=== PATIENT | male | born 1965 | race Caucasian/White ===

== ENCOUNTER 2021-11-22 10:39 | Emergency (ER) | payer OTHER, SELFPAY ==
[2021-11-22 10:52] LABS: Basophils Percent Auto 0.3 % (0.2-1.2); Eosinophils Absolute Auto 0.4 K/mm3 (0-0.3); Eosinophils Percent Auto 2.7 % (0-4.4); Hematocrit 37.2 % (42.0-52.0); Hemoglobin 12.2 g/dL (14.0-18.0); Immature Granulocyte Percent A 0.7 % (0-0.5); Lymphocytes Absolute Auto 1.47 K/mm3 (0.9-3.2); Lymphocytes Percent Auto 10.4 % (18.3-44.2); Mean Corpuscular HGB Conc 32.8 g/dl (32-36); Mean Corpuscular Hemoglobin 28.4 pg (26-34); Mean Corpuscular Volume 86.5 fl (80-100); Monocytes Absolute Auto 0.8 K/mm3 (0.1-0.6); Monocytes Percent Auto 5.5 % (2.6-8.5); Neutrophils Absolute Auto 11.4 K/mm3 (1.3-6.7); Neutrophils Percent Auto 80.4 % (45.5-73.1); Platelet Count Result 411 k/mm3 (150-375); Red Cell Distribution Width 14.1 % (11.5-14.5); White Blood Count 14.2 K/mm3 (4.5-10.0)
[2021-11-22 10:59] VITALS: BP 122/78; PULSE 107; RESP 14; TEMP 36.5; O2SAT 100
[2021-11-22 11:03] LABS: Alanine Aminotransferase 26 U/L (6-50); Albumin Level 3.8 g/dL (3.5-5.1); Alkaline Phosphatase 57 U/L (38-126); Anion Gap 10 mmol/L (8-16); Aspartate Amino Transferase 26 U/L (17-59); Bilirubin,Total 0.4 mg/dL (0.2-1.3); Blood Urea Nitrogen 18 mg/dL (9-20); Calcium 8.2 mg/dL (8.4-10.2); Carbon Dioxide 18 mmol/L (22-30); Chloride 108 mmol/L (98-107); Estimated Glomerular Filt Rate 49; Glucose 190 mg/dL (65-110); Potassium 4.8 mmol/L (3.4-5.0); Sodium 136 mmol/L (137-145)
[2021-11-22 11:07] LABS: Appearance Urine Clear (Clear); Bilirubin Urine Negative (Negative); Blood Urine Trace-lysed (Negative); Color Urine Yellow (Yellow); Glucose Urine UA Negative (Negative); Ketones Urine Negative (Negative); Leukocyte Esterase Ur Negative LEU/UL (Negative); Nitrate Urine Negative (Negative); Protein Urine Trace mg/dL (Negative); Specific Grav Ur 1.015 (1.001-1.035); Urobilinogen Urine 0.2 mg/dL (<2.0); pH Urine 5.5 (5.0-9.0)
[2021-11-22 11:11] LABS: RBC Urine 0-2 /hpf (0-2); Squamous Epithelial Cell Urine Rare /hpf (Few); WBC Urine 0-3 /hpf
[2021-11-22 11:14] LABS: Add Urine Microscopic? YES
[2021-11-22 11:46] VITALS: BP 132/93; PULSE 97; RESP 17; O2SAT 98
[2021-11-22] MEDS: SODIUM CHLORIDE 0.9% IV 1,000 ML 999 ML IV CONT ×2 (12:22→14:51)
--- NOTE | 2021-11-22 13:07 | ED.GENADULT ---
HPI - General Adult General Chief complaint: Recheck/Abnormal Lab/Rx Stated complaint: Kidney failure? sent by pcp Time Seen by Provider: 11/22/21 12:07 History of Present Illness HPI narrative: 55-year-old male presenting the emergency department for evaluation of elevated creatinine. Patient states he had approximately 3days diarrhea and felt that he was very dehydrated. Patient states during that time he was having leg cramping. Patient did have resolution of the diarrhea morning. Patient did have follow-up with his primary care physician on Wednesday and was found to have a creatinine of 2.7. Patient was instructed to present to the emergency department for his acute kidney injury. Patient states he did drink a a lot of beer and water last night. Patient's creatinine today is 1.5. Patient does have a recent diagnosis of pericarditis and does take colchicine and indomethacin. Patient has history of diabetes but states his blood sugars are better controlled. Patient denies any complaints at this time. Related Data Home Medications Medication Instructions Recorded Confirmed indomethacin 75 mg 75 mg PO DAILY 11/06/21 capsule,extended release Allergies Allergy/AdvReac Type Severity Reaction Status Date / Time No Known Allergies Allergy Verified 11/22/21 11:43 Review of Systems Review of Systems: CONSTITUTIONAL: Denies fever, chills, or sweats. EYES: Denies visual changes, redness, or discharge. ENT: Denies rhinorrhea, congestion, sore throat, or otalgia. CARDIOVASCULAR: Denies chest pain, palpitations, or edema. RESPIRATORY: Denies cough or dyspnea. GASTROINTESTINAL: Denies abdominal pain, nausea, vomiting, or diarrhea. GENITOURINARY: Denies dysuria or hematuria. SKIN: Denies rash or itching. MUSCULOSKELETAL: Denies back pain, joint pain, or myalgia. NEUROLOGIC: Denies headache, numbness, or weakness. 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, uncontrolled Hyperlipidemia Hypertension Insomnia Polyneuropathy Psoriasis Tachycardia Type 2 diabetes mellitus Surgical History Surgical History H/O foot surgery Right: 08/2018 Hx laparoscopic cholecystectomy Family History Family History Mother Diabetes mellitus Father Family history of lung cancer Social History Social History (Reviewed 11/06/21 @ 08:44 by Janay Cao [facility]) Social History: caffeine- Diet soda Smoking status: Never smoker Smoking end date: 06/21/06 Alcohol intake: former Exam Narrative: APPEARANCE: Well appearing, no pain, no distress, well-nourished. HEAD: normocephalic, atraumatic. EYES: PERRLA/EOMI, conjunctivae clear. NECK: Supple. No adenopathy, no masses. RESPIRATORY: Airway patent, respirations nonlabored. Clear to auscultation bilaterally, no rales, rhonchi, wheezing. CARDIOVASCULAR: Regular rate and rhythm without murmurs rubs or gallops. ABDOMINAL: Soft, nontender, nondistended, normal bowel sounds MUSCULOSKELETAL: Moves all extremities. Strength/ROM intact. NEURO: Alert. Cranial nerves II through XII intact. Grossly intact SKIN: Warm, dry. Normal Color Course Course Emergency Course: Patient's creatinine was significantly improved compared to his labs yesterday. Patient states he is tolerating p.o. and has no persistent nausea or vomiting. Patient states he is urinating clear. Patient was treated with 2 L of normal saline. Patient states he does have follow-up scheduled with his primary care physician. Patient was educated on reasons to return to the emergency room. All question concerns were addressed. Patient was well-appearing at time of discharge. Vital Signs Vital signs: Vital Signs Temperature 97.7 F 11/22/21 10:59 Pulse Ra
[2021-11-22 14:05] VITALS: BP 136/84; PULSE 82; RESP 16; O2SAT 98
[2021-11-22 15:10] VITALS: BP 136/92; PULSE 79; RESP 17; O2SAT 98
== END 2021-11-22 15:10 | disposition home or self-care (01) ==
PROVIDERS: Emergency Provider Emergency Medicine; PCP Internal Medicine
DX: N17.9 Acute kidney failure, unspecified (principal); E78.5 Hyperlipidemia, unspecified; I10 Essential (primary) hypertension; E11.42 Type 2 diabetes mellitus with diabetic polyneuropathy; E11.49 Type 2 diabetes mellitus with other diabetic neurological complication; Z79.84 Long term (current) use of oral hypoglycemic drugs
CPT/HCPCS: 36415; 80053; 81001; 85025; 96360; 96361; 99283; J7030

== ENCOUNTER 2021-11-29 09:50 | Emergency (ER) | payer OTHER, SELFPAY ==
--- NOTE | ~2021-11-29 | CT_ITS ---
EXAMINATION: CTA chest PE protocol DATE: 11/29/2021 11:58 CDT INDICATION: Chest pain, shortness of breath and tachycardia. Elevated d-dimer. TECHNIQUE: Computed tomographic angiography (CTA) of the chest was performed with 100 mL Omnipaque-35 0 intravenous contrast. The dose-length product was 899.46 mGy-cm. Maximum intensity projection 3D-re constructions of the aorta and other arteries were constructed by the technologist on a separate work station. Automated exposure control and iterative reconstruction technique were employed. COMPARISON: Chest x-ray dated 11/29/2021. FINDINGS: Study is technically limited for evaluation of the peripheral pulmonary arteries due to con trast bolus timing and motion. No large central pulmonary embolism. No thoracic lymphadenopathy. Ther e is atherosclerosis of the aorta and coronary arteries. Heart size normal. Small pericardial effusio n. There is focal fatty infiltration with nodular soft tissue just lateral to the hepatic flexure the colon, images 255-264. This finding is nonspecific. There are nonenlarged mediastinal lymph nodes, l ikely reactive. There is left lower lobe airspace consolidation which may represent atelectasis and/o r pneumonia. Motion artifact limits evaluation for small pulmonary nodules. No endobronchial lesions. No acute osseous abnormality. IMPRESSION: 1. No large central pulmonary embolism. Study limited for evaluation of peripheral pulmonary arteries . 2: Left lower lobe airspace consolidation which may represent atelectasis and/or pneumonia. 3: Small left pleural effusion. 4: Small pericardial effusion. 5: Focal fatty infiltration with nodular soft tissue just lateral to the hepatic flexure the colon, i mages 255-264. This may represent sequela of adjacent diverticulitis although malignancy (i.e. metast atic disease is not excluded. Reviewed, dictated and finalized at location A. IMPRESSION: 1. No large central pulmonary embolism. Study limited for evaluation of periphe ral pulmonary arteries. 2: Left lower lobe airspace consolidation which may represent atelectasis and/o r pneumonia. 3: Small left pleural effusion. 4: Small pericardial effusion. 5: Focal fatty infiltration with nodular soft tissue just lateral to the hepati c flexure the colon, images 255-264. This may represent sequela of adjacent div erticulitis although malignancy (i.e. metastatic disease is not excluded.
--- NOTE | ~2021-11-29 | XR_ITS ---
XR chest 2V 11/29/2021 10:26 Indication: Chest pain. Diabetes. Procedure: 2 view chest Comparison: No prior studies for comparison. Findings: Small left pleural effusion with left basilar atelectasis. Heart size normal. Right lung cl ear. No pneumothorax. No edema. Impression: 1: Left basilar atelectasis. 2: Small left pleural effusion. Reviewed, dictated and finalized at location A. Impression: 1: Left basilar atelectasis. 2: Small left pleural effusion.
[2021-11-29 09:51] VITALS: BP 140/84; PULSE 84; RESP 18; TEMP 36.1; O2SAT 100
[2021-11-29 10:04] VITALS: PULSE 109
--- NOTE | 2021-11-29 10:05 | ECG_ITS ---
Measurements Intervals [place] Rate: 107 P: 28 CT: 150 QRS: 28 QRSD: 100 T: 255 QT: 294 QTc: 393 Interpretive Statements SINUS TACHYCARDIA INCOMPLETE RIGHT BUNDLE BRANCH BLOCK [90+ ms QRS DURATION, TERMINAL R IN V1/V2, 40+ ms S IN I/aVL/V4/V5/V6] ST DEVIATION AND MODERATE T-WAVE ABNORMALITY, CONSIDER ANTEROLATERAL ISCHEMIA [-0.1+ mV T-WAVE IN V3-V6] ST DEVIATION AND MODERATE T-WAVE ABNORMALITY, CONSIDER INFERIOR ISCHEMIA [-0.1+ mV T- WAVE IN II/aVF] ABNORMAL ECG NO PREVIOUS ECG AVAILABLE FOR COMPARISON Electronically Signed On 11-29-2021 13:47:18 CDT by Rex Mauricio M.D.
[2021-11-29 10:15] LABS: Basophils Absolute Auto 0.1 K/mm3 (0.0-0.1); Basophils Percent Auto 0.7 % (0.2-1.2); Eosinophils Absolute Auto 1.1 K/mm3 (0-0.3); Eosinophils Percent Auto 9.9 % (0-4.4); Hematocrit 38.6 % (42.0-52.0); Hemoglobin 12.5 g/dL (14.0-18.0); Immature Granulocyte Absolute 0.06 K/mm3 (0.00-0.031); Immature Granulocyte Percent A 0.5 % (0-0.5); Lymphocytes Absolute Auto 2.16 K/mm3 (0.9-3.2); Lymphocytes Percent Auto 19.5 % (18.3-44.2); Mean Corpuscular HGB Conc 32.4 g/dl (32-36); Mean Corpuscular Hemoglobin 28.2 pg (26-34); Mean Corpuscular Volume 87.1 fl (80-100); Mean Platelet Volume 9.6 fl (7.4-10.4); Monocytes Absolute Auto 0.9 K/mm3 (0.1-0.6); Monocytes Percent Auto 8.1 % (2.6-8.5); Neutrophils Absolute Auto 6.8 K/mm3 (1.3-6.7); Neutrophils Percent Auto 61.3 % (45.5-73.1); Platelet Count Result 518 k/mm3 (150-375); Red Blood Count 4.43 M/mm3 (4.6-6.20); Red Cell Distribution Width 14.9 % (11.5-14.5); White Blood Count 11.1 K/mm3 (4.5-10.0)
--- NOTE | 2021-11-29 10:17 | ED.CHESTPAIN ---
HPI - Chest Pain General Chief Complaint: Chest Pain <SAAD Edwards Last Filed: 11/29/21 15:45> Stated Complaint: back pain, told he had kidney failure last week <SAAD Edwards Last Filed: 11/29/21 15:45> Time Seen by Provider: 11/29/21 09:56 <SAAD Edwards Last Filed: 11/29/21 15:45> History of Present Illness HPI narrative: Patient is a 55-year-old male with a history of pericarditis, diabetes, s/p RLE amputation, HTN, HLD here for evaluation of chest and left lower back pain onset yesterday, worse today. Patient states his pain begins in his left upper flank region and radiates around to his chest. States the pain is worse with deep breaths, coughing, movement of his thorax, and also worse with touching his chest. States he has a similar pain in his chest when he was diagnosed with pericarditis last month at outside hospital, and he has been taking colchicine for this. Recently stopped his indomethacin. States the pain is making him short of breath. Reports some sinus congestion recently, but no cough. Denies fevers, chills, abdominal pain, nausea, vomiting, dysuria, hematuria. No history of IV drug use. Denies recent overuse of chest muscles or back muscles. <SAAD Edwards Last Filed: 11/29/21 15:45> Related Data Home Medications: Home Medications Medication Instructions Recorded Confirmed indomethacin 75 mg 75 mg PO DAILY 11/06/21 11/25/21 capsule,extended release <SAAD Edwards Last Filed: 11/29/21 15:45> Allergies/Adverse Reactions: Allergies Allergy/AdvReac Type Severity Reaction Status Date / Time No Known Allergies Allergy Verified 11/29/21 10:09 <SAAD Edwards Last Filed: 11/29/21 15:45> Review of Systems Review of Systems: Gen: Denies fevers or chills Eyes: Denies eye pain or visual change ENT: Denies congestion Respiratory: Denies shortness of breath or cough CV: Reports chest pain GI: Denies abdominal pain nausea, emesis or diarrhea denies burning, urgency, frequency or hematuria Musculoskeletal: Reports back pain. 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, uncontrolled Hyperlipidemia Hypertension Insomnia Polyneuropathy Psoriasis Tachycardia Type 2 diabetes mellitus <Ratna Louise PA-C - Last Filed: 11/29/21 15:45> Surgical History Surgical History: Surgical History H/O foot surgery Right: 08/2018 Hx laparoscopic cholecystectomy <Ratna Louise PA-C - Last Filed: 11/29/21 15:45> Family History Family History: Family History Mother Diabetes mellitus Father Family history of lung cancer <Ratna Louise PA-C - Last Filed: 11/29/21 15:45> Social History Social History: Social History Social History: caffeine- Diet soda Smoking status: Never smoker Smoking end date: 06/21/06 Alcohol intake: former <Ratna Louise PA-C - Last Filed: 11/29/21 15:45> Exam Narrative: APPEARANCE: Uncomfortable appearing Head normocephalic and atraumatic. EYES: PERRLA/EOMI, conjunctivae clear NOSE: No nasal drainage EARS: External ear normal in appearance THROAT: Oropharynx is clear. Mucous membranes are moist. NECK: Supple. No adenopathy, no masses. RESPIRATORY: Airway patent, respirations nonlabored. Clear to auscultation bilaterally, no rales, rhonchi, wheezing. [facility]
[2021-11-29 10:24] LABS: Alanine Aminotransferase 15 U/L (6-50); Alkaline Phosphatase 62 U/L (38-126); Anion Gap 10 mmol/L (8-16); Aspartate Amino Transferase 20 U/L (17-59); Bilirubin,Total 0.5 mg/dL (0.2-1.3); Blood Urea Nitrogen 7 mg/dL (9-20); Calcium 8.5 mg/dL (8.4-10.2); Carbon Dioxide 23 mmol/L (22-30); Chloride 105 mmol/L (98-107); Estimated CRCL calculation 120 ml/min; Estimated Glomerular Filt Rate > 60; Glucose 154 mg/dL (65-110); Lipase 329 U/L (23-300); Potassium 4.6 mmol/L (3.4-5.0); Sodium 138 mmol/L (137-145)
[2021-11-29 10:26] LABS: Prothrombin Time 13.2 Seconds (11.1-14.7)
[2021-11-29 10:33] LABS: Partial Thromboplastin Time 30.4 SECONDS (22.3-36.8)
[2021-11-29 10:33] LABS: Appearance Urine Clear (Clear); Bilirubin Urine Negative (Negative); Blood Urine Negative (Negative); Color Urine Yellow (Yellow); Glucose Urine UA Negative (Negative); Ketones Urine Negative (Negative); Leukocyte Esterase Ur Negative LEU/UL (Negative); Nitrate Urine Negative (Negative); Protein Urine Negative (Negative); Specific Grav Ur 1.015 (1.001-1.035); Urobilinogen Urine 0.2 mg/dL (<2.0)
[2021-11-29 10:36] LABS: D Dimer 2.62 ug/mL (<0.48); Troponin I < 0.012 ng/mL (0.000-0.034)
[2021-11-29 10:40] LABS: Add Urine Microscopic? NO
[2021-11-29] MEDS: ASPIRIN 81 MG CHEWABLE TABLET 324 MG PO (10:55)
[2021-11-29 12:06] VITALS: BP 124/69; PULSE 97; RESP 21; O2SAT 99
[2021-11-29 12:30] VITALS: PULSE 103; RESP 18; O2SAT 96
[2021-11-29 13:31] VITALS: BP 124/71; PULSE 90; RESP 22; O2SAT 97
[2021-11-29 13:43] LABS: Troponin I < 0.012 ng/mL (0.000-0.034)
[2021-11-29] MEDS: INDOMETHACIN 25 MG CAPSULE PO (13:46)
[2021-11-29 14:30] VITALS: BP 142/83; PULSE 93; RESP 16; O2SAT 97
== END 2021-11-29 14:35 | disposition home or self-care (01) ==
PROVIDERS: Physician Assistant; Emergency Provider Emergency Medicine; PCP Internal Medicine
DX: J18.9 Pneumonia, unspecified organism (principal); I31.9 Disease of pericardium, unspecified; E11.49 Type 2 diabetes mellitus with other diabetic neurological complication; I10 Essential (primary) hypertension; E78.5 Hyperlipidemia, unspecified; Z89.611 Acquired absence of right leg above knee; Z79.84 Long term (current) use of oral hypoglycemic drugs; R00.0 Tachycardia, unspecified; I45.10 Unspecified right bundle-branch block; R94.31 Abnormal electrocardiogram [ECG] [EKG]
CPT/HCPCS: 36415; 71046; 71275; 80053; 81003; 83690; 84484; 85025; 85380; 85610; 85730; 93005; 99284; A9270; Q9967

== ENCOUNTER 2021-12-16 12:54 | Outpatient (CLI) | payer OTHER, SELFPAY ==
--- NOTE | ~2021-12-16 | XR_ITS ---
XR chest 2V DATE: 12/16/2021 13:06 INDICATION: Cough. Pneumonia. TECHNIQUE: PA and lateral views COMPARISON: 11/29/[address] pulmonary scan FINDINGS: There is left lower lobe and lingular infiltrate/atelectasis and moderate left pleural effu clement; the left pleural effusion has increased since 11/29/2021. The remaining lung hanna appear clear. No right pleural effusion is evident. Normal heart size. No hilar or mediastinal enlargement is detected. IMPRESSION: Moderate left pleural effusion, increased since 11/29/2021, with persistent left lower lob e and lingular infiltrate and/or atelectasis Reviewed, dictated and finalized at location B. IMPRESSION: Moderate left pleural effusion, increased since 11/29/2021, with per sistent left lower lobe and lingular infiltrate and/or atelectasis
== END 2021-12-16 12:55 | disposition home or self-care (01) ==
LOC: ANHIMG 12:57
PROVIDERS: PCP Internal Medicine; Visit Provider Clinical Nurse Specialist
DX: J18.9 Pneumonia, unspecified organism (principal); J90 Pleural effusion, not elsewhere classified
CPT/HCPCS: 71046

== ENCOUNTER 2021-12-17 12:03 | Emergency (ER) | payer OTHER, SELFPAY ==
[2021-12-17] VITALS (9 sets, daily range): BP systolic 93–149; BP diastolic 63–108; PULSE 68–113; RESP 14–25; TEMP 36.8; O2SAT 96–100
--- NOTE | ~2021-12-17 | US_ITS ---
EXAMINATION: US thoracentesis DATE: 12/17/2021 16:33 INDICATION: Left pleural effusion TECHNIQUE: The procedure and its risks and benefits were discussed with the patient. Potential risks discussed included bleeding, infection, and pneumothorax. The patient understood the risks and agreed to proceed. The skin was prepped and draped in sterile fashion. 1% lidocaine was used for local anes thesia. Under ultrasound guidance, a 5 Fr catheter with trochar was advanced into the left pleural ef fusion. Fluid was aspirated. The catheter was removed, and a dressing was applied. There were no imme diate complications. FINDINGS: Ultrasound images demonstrate a moderate-sized left pleural effusion and the catheter within the flui d. IMPRESSION: 1. Successful ultrasound-guided thoracentesis yielding 1000 mL of dark maroon-colored fluid. Reviewed, dictated and finalized at location A. IMPRESSION: 1. Successful ultrasound-guided thoracentesis yielding 1000 mL of dark maroon- colored fluid.
--- NOTE | ~2021-12-17 | XR_ITS ---
EXAMINATION: [id number] DATE: 12/17/2021 16:21 INDICATION: Status post left thoracentesis TECHNIQUE: frontal and lateral views of the chest were obtained. COMPARISON: Chest radiograph dated 12/16/2021 FINDINGS: Interval decrease in size of a previously moderate-sized, now small left pleural effusion at the left costophrenic angle. Opacities in the left lower lung zone which could represent atelectasis or pneum onia. Right lung remains clear. No pneumothorax or right-sided pleural effusion. Cardiomediastinal si lhouette is normal. IMPRESSION: 1. Decreased now small left pleural effusion postthoracentesis. No pneumothorax. 2. Opacities in the left lower lung zone which could represent atelectasis and/or pneumonia. Reviewed, dictated and finalized at location A. IMPRESSION: 1. Decreased now small left pleural effusion postthoracentesis. No pneumothorax . 2. Opacities in the left lower lung zone which could represent atelectasis and/ or pneumonia.
--- NOTE | ~2021-12-17 | CT_ITS ---
EXAMINATION: CTA chest PE protocol DATE: 12/17/2021 14:40 INDICATION: Dyspnea. Elevated d-dimer. TECHNIQUE: Computed tomography angiography (CTA) of the chest was performed with 100 mL Omnipaque-350 intravenous contrast timed to evaluate the pulmonary arteries. Coronal maximum intensity projection 3D-reconstructions were created by the technologist. Automated exposure control and iterative reconst ruction technique were employed. Exam dose: 822.63 mGy-cm total exam DLP. COMPARISON: 12/16/2021 2 view chest 11/29/2021 CT pulmonary scan FINDINGS: There is diagnostic contrast enhancement of pulmonary. No pulmonary embolism is identified within the limits of this examination with considerable respiratory motion, resulting in suboptimal v isualization of the peripheral pulmonary arteries. No thoracic aortic aneurysm or dissection. Normal heart size. Small pericardial effusion. Moderately large left pleural effusion with compressive atelectasis of the left lower lobe. The remai crista lung hanna are clear. Likely reactive mild left hilar and mediastinal lymph node prominence. No right pleural effusion. Normal morphology of the adrenal glands. Status post cholecystectomy. Included portions of the liver, spleen, pancreas and kidneys are unremar kable. The skeletal structures are unremarkable other than degenerative change of the thoracic and lumbar sp ine. No suspicious osteolytic or osteoblastic lesions. IMPRESSION: No evidence of pulmonary embolism Moderately large left pleural effusion and compressive atelectasis, left lower lobe Reviewed, dictated and finalized at Location A. Reviewed, dictated and finalized at location B.
--- NOTE | 2021-12-17 12:09 | ECG_ITS ---
Measurements Intervals [place] Rate: 111 P: 30 [place]: 163 QRS: 44 QRSD: 107 T: -65 QT: 309 QTc: 420 Interpretive Statements SINUS TACHYCARDIA POSSIBLE LEFT ATRIAL ENLARGEMENT [-0.1mV P WAVE IN V1/V2] INCOMPLETE RIGHT BUNDLE BRANCH BLOCK [90+ ms QRS DURATION, TERMINAL R IN V1/V2, 40+ ms S IN I/aVL/V4/V5/V6] ST DEVIATION AND MODERATE T-WAVE ABNORMALITY, CONSIDER ANTEROLATERAL ISCHEMIA [-0.1+ mV T WAVE IN V3-V6], noted on the patient's prior tracing COMPARED TO ECG 11/29/2021 10:04:39 NO SIGNIFICANT CHANGES Electronically Signed On 12-17-2021 12:51:35 CDT by Nat Alvarado M.D.
[2021-12-17 12:25] LABS: Basophils Absolute Auto 0.1 K/mm3 (0.0-0.1); Basophils Percent Auto 0.9 % (0.2-1.2); Eosinophils Absolute Auto 0.7 K/mm3 (0-0.3); Eosinophils Percent Auto 7.2 % (0-4.4); Hematocrit 38.5 % (42.0-52.0); Hemoglobin 13.1 g/dL (14.0-18.0); Immature Granulocyte Absolute 0.03 K/mm3 (0.00-0.031); Immature Granulocyte Percent A 0.3 % (0-0.5); Lymphocytes Absolute Auto 1.81 K/mm3 (0.9-3.2); Lymphocytes Percent Auto 18.8 % (18.3-44.2); Mean Corpuscular Hemoglobin 28.1 pg (26-34); Mean Corpuscular Volume 82.6 fl (80-100); Mean Platelet Volume 9.7 fl (7.4-10.4); Monocytes Absolute Auto 0.8 K/mm3 (0.1-0.6); Monocytes Percent Auto 8.1 % (2.6-8.5); Neutrophils Absolute Auto 6.2 K/mm3 (1.3-6.7); Neutrophils Percent Auto 64.7 % (45.5-73.1); Platelet Count Result 376 k/mm3 (150-375); Red Blood Count 4.66 M/mm3 (4.6-6.20); Red Cell Distribution Width 14.2 % (11.5-14.5); White Blood Count 9.6 K/mm3 (4.5-10.0)
--- NOTE | 2021-12-17 12:30 | PC.NURSE ---
patient has been having SOB x2 weeks. was told that he had some fluid in his lungs and was started on an oral abx and mucinex. re-check xray yesterday and was told that it is getting worse.
[2021-12-17 12:43] LABS: Alanine Aminotransferase 17 U/L (6-50); Albumin Level 4.1 g/dL (3.5-5.1); Alkaline Phosphatase 65 U/L (38-126); Anion Gap 11 mmol/L (8-16); Aspartate Amino Transferase 30 U/L (17-59); Blood Urea Nitrogen 8 mg/dL (9-20); Calcium 9.1 mg/dL (8.4-10.2); Carbon Dioxide 18 mmol/L (22-30); Chloride 104 mmol/L (98-107); Estimated CRCL calculation 118 ml/min; Estimated Glomerular Filt Rate > 60; Glucose 230 mg/dL (65-110); Potassium 4.6 mmol/L (3.4-5.0); Sodium 133 mmol/L (137-145)
[2021-12-17 12:44] LABS: INR 1.1; Partial Thromboplastin Time 29.9 SECONDS (22.3-36.8); Prothrombin Time 13.6 Seconds (11.1-14.7)
[2021-12-17 12:48] LABS: NT Pro B Type Natriuretic Pept 296 pg/mL (5-100)
[2021-12-17 12:52] LABS: Troponin I < 0.012 ng/mL (0.000-0.034)
[2021-12-17 13:07] LABS: D Dimer 2.72 ug/mL (<0.48)
[2021-12-17 14:16] LABS: SARS-CoV-2 RNA PCR Negative
--- NOTE | 2021-12-17 16:06 | ED.SOB ---
HPI - SOB/Dyspnea General Chief Complaint: Shortness of Breath/Dyspnea Stated Complaint: sob, cough Time Seen by Provider: 12/17/21 12:42 History of Present Illness HPI Narrative: Patient presents with concern for pleural effusion. Was recently seen and treated for pericarditis as well as a pneumonia. Reports overall he is feeling well he follow-up with his primary care doctor had an outpatient chest x-ray there was concern for pleural effusions referred to the ER for further evaluation. Reports overall he is feeling well reports he gets a little bit fatigued with walking around but if it was not for his primary care's doctor's recommendation he probably would continue to try and manage his symptoms at home. Denies any chest pain reports some mild shortness of breath denies any cough or fevers. Related Data Home Medications Medication Instructions Recorded Confirmed indomethacin 75 mg 75 mg PO DAILY 11/06/21 12/08/21 capsule,extended release Allergies Allergy/AdvReac Type Severity Reaction Status Date / Time No Known Allergies Allergy Verified 12/08/21 13:23 Review of Systems Review of Systems: CONSTITUTIONAL: Denies fever, chills, or sweats. EYES: Denies visual changes, redness, or discharge. ENT: Denies rhinorrhea, congestion, sore throat, or otalgia. CARDIOVASCULAR: Denies chest pain, palpitations, or edema. RESPIRATORY: Denies cough or dyspnea. GASTROINTESTINAL: Denies abdominal pain, nausea, vomiting, or diarrhea. GENITOURINARY: Denies dysuria or hematuria. SKIN: Denies rash or itching. MUSCULOSKELETAL: Denies back pain, joint pain, or myalgia. NEUROLOGIC: Denies headache, numbness, dizziness, or weakness. PSYCHIATRIC: Denies anxiety or depression. 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 HEAD: Normocephalic, atraumatic. EYES: PERRLA and EOMI. ENT: Nares clear, no rhinorrhea or epistaxis. Mucous membranes moist. NECK: Supple. No masses. No JVD CHEST: Mild diminished aeration in the left lung field HEART: Regular rate and rhythm. No murmur heard. Normal peripheral pulses. ABDOMEN: Soft, nontender, nondistended, normal active bowel sounds. EXTREMITIES: Normal range of motion. No edema. SKIN: Warm, dry, no rash. NEURO: No focal deficits. Alert and oriented x3. PSYCH: Normal mood and affect. Course Reevaluation(s) Reevaluation #1: Patient reports feeling much improved after his thoracentesis abscess diarrhea was reassuring. Given reassuring work-up and improvement in symptoms patient is appropriate for continued outpatient monitoring with his primary care doctor. X-ray with concern for pneumonia we will add azithromycin. Patient is comfortable outpatient plan. Date: 12/17/21 Time: 17:22 Vital Signs Vital signs: Vital Signs Temperature 36.8 C 12/17/21 12:07 Pulse Rate 113 H 12/17/21 12:07 Respiratory Rate 20 12/17/21 12:07 Blood Pressure 131/108 H 12/17/21 12:07 Pulse Oximetry 100 12/17/21 12:07 Oxygen Delivery Room Air 12/17/21 12:07 Temperature 36
[2021-12-17 16:33] LABS: pH Pleural Fluid 7.376 (7.210-7.500)
[2021-12-17 19:41] LABS: Appearance Pleural Fluid Bloody (Clear); Color Pleural Fluid Red (Colorless); Nucleated Cell Pleural Fluid 1334 /uL (0-1000); Pleural fluid source Pleural fluid
[2021-12-17 19:42] LABS: Lymphocytes Pleural Fluid 55 %; Macrophages Pleural Fluid 3 %; Monocytes Pleural Fluid 16 %; Neutrophils Pleural Fluid 1 % (0-25); RBC Pleural Fluid 54564 /uL (0-0)
[2021-12-17 19:43] LABS: Other Cells Pleural Fluid 25 %
[2021-12-21 14:15] LABS: Glucose Pleural Fluid 166 mg/dL; Total Protein Pleural Fluid 4.9 g/dL
[2021-12-22 12:59] LABS: Albumin Pleural Fluid 3.1 g/dL
== END 2021-12-17 17:55 | disposition home or self-care (01) ==
PROVIDERS: Emergency Provider Emergency Medicine; PCP Internal Medicine
DX: J18.9 Pneumonia, unspecified organism (principal); J90 Pleural effusion, not elsewhere classified; Z20.822 Contact with and (suspected) exposure to COVID-19; E78.5 Hyperlipidemia, unspecified; I10 Essential (primary) hypertension; E11.42 Type 2 diabetes mellitus with diabetic polyneuropathy; Z89.429 Acquired absence of other toe(s), unspecified side; Z89.619 Acquired absence of unspecified leg above knee; Z87.891 Personal history of nicotine dependence; R00.0 Tachycardia, unspecified; I45.10 Unspecified right bundle-branch block; R94.31 Abnormal electrocardiogram [ECG] [EKG]; Z79.84 Long term (current) use of oral hypoglycemic drugs
CPT/HCPCS: 32555; 36415; 71275; 80053; 82042; 82945; 83615; 83880; 83986; 84157; 84311; 84484; 85025; 85380; 85610; 85730; 88104; 88108; 88184; 88305; 89051; 93005; 99284; C9803; Q9967; U0003; U0005

== ENCOUNTER 2021-12-31 09:30 | Outpatient (CLI) | payer OTHER, SELFPAY ==
--- NOTE | ~2021-12-31 | XR_ITS ---
XR chest 2V DATE: 12/31/2021 09:47 INDICATION: Pleural effusion TECHNIQUE: PA and lateral views COMPARISON: 12/17/2021 CT pulmonary scan 12/16/2021 2 view chest FINDINGS: There is mild improvement of left pleural effusion since 12/08/2021 and some persistent left lower lobe atelectasis. No right pleural effusion. The lungs are otherwise clear. Heart size normal. No hilar or mediastinal enlargement. IMPRESSION: Mild improvement of left pleural effusion, persistent left lower lung atelectasis since Reviewed, dictated and finalized at location A. IMPRESSION: Mild improvement of left pleural effusion, persistent left lower bigg ng atelectasis since 12/08/2021
== END 2021-12-31 09:31 | disposition home or self-care (01) ==
LOC: ANHIMG 09:32
PROVIDERS: PCP Internal Medicine; Visit Provider Internal Medicine
DX: J90 Pleural effusion, not elsewhere classified (principal)
CPT/HCPCS: 71046

== ENCOUNTER 2022-01-20 13:16 | Outpatient (CLI) | payer OTHER, SELFPAY ==
--- NOTE | 2022-01-20 13:48 | ECHO_ITS ---
Patient Info Name: Lenard Castaneda Age: 56 years : 1965 Gender: Male Ht: 72 in Wt: 250 lbs BSA: 2.44 m2 HR: 94 bpm BP: 139 / 95 mmHg Technical Quality: Good Exam Date: 01/20/2022 2:13 PM Exam Location: [facility] Patient Status: Outpatient Admit Date: 01/20/2022 Staff Ordering Physician: Yoav Goldsmith DO Blue Print Control Clerk: Fabian Ortiz RDCS, RT Attending Provider: Ratna Salazar NP Referring Physician: Agus GARCIA; Exam Type: CA echo doppler color flow Study Info Indications I31.3 - Pericardial effusion (noninflammatory) Complete two-dimensional, color flow and Doppler transthoracic echocardiogram is performed. Strain analysis performed. Summary 1. Complete two-dimensional, color flow and Doppler transthoracic echocardiogram is performed. 2. Left ventricular chamber dimension is normal. 3. Left ventricular systolic function is normal, estimated at 60-65%. 4. The left ventricular diastolic function is grade I diastolic dysfunction. 5. E/e' 8 is minimally elevated. 6. Global longitudinal strain is normal at -18.1%. 7. Dilated inferior vena cava with >50% collapse upon inspiration consistent with elevated right atrial pressure, 10 mmHg. Left Ventricle E/e' 8 is minimally elevated. Global longitudinal strain is normal at -18.1%. Left ventricular chamber dimension is normal. Left ventricular systolic function is normal, estimated at 60-65%. The left ventricular diastolic function is grade I diastolic dysfunction. Right Ventricle Right ventricular chamber dimension is normal. Right ventricular systolic function is normal. Left Atria Left atrial chamber dimension is normal. Right Atria Right atrial chamber dimension is normal. Aortic Valve The aortic valve is trileaflet. There is no aortic valve stenosis. There is no aortic valve regurgitation. Pulmonic Valve There is no pulmonic regurgitation. Mitral Valve There is no mitral valve stenosis. There is no mitral valve regurgitation. Tricuspid Valve There is no tricuspid valve regurgitation. Pericardium/Pleural There is no pericardial effusion. Inferior Vena Cava Dilated inferior vena cava with >50% collapse upon inspiration consistent with elevated right atrial pressure, 10 mmHg. Aorta The aortic root size at the sinus of Valsalva is normal. Left Ventricular Outflow Tract Name Value Normal LVOT 2D LVOT Diameter 2.0 cm LVOT Doppler LVOT Peak Gradient 4 mmHg LVOT Mean Gradient 2 mmHg LVOT VTI 16 cm LVOT VTI/AV VTI Ratio 0.9 LVOT Stroke Volume 54 ml LVOT CO 5.4 l/min LVOT CI 2.2 l/min/m2 Mitral Valve Name Value Normal MV Doppler MV
== END 2022-01-20 13:17 | disposition home or self-care (01) ==
LOC: ANHCARD 13:19
PROVIDERS: PCP Internal Medicine; Visit Provider Nurse Practitioner
DX: I31.3 Pericardial effusion (noninflammatory) (principal)
CPT/HCPCS: 93306

== ENCOUNTER 2022-01-23 01:40 | Outpatient (CLI) | payer OTHER, SELFPAY ==
[2022-01-15 10:32] VITALS: BMI 33.9
--- NOTE | 2022-01-15 10:34 | PC.NURSE ---
Pre Radiology instructions Report to the RADIOLOGY ENTRANCE, at time 1000 on date 01/23/22. Procedure Time: 1030. One visitor will be allowed to accompany the patient into the hospital. The visitor will be instructed to remain with patient at all times or leave the building. We will allow the visitor to come back to the postoperative area when patient is ready. You and your visitor will be asked a series of questions to screen for COVID 19 for your protection. A mask is required within the hospital. Patients are to have no food or drink 6 hours prior to procedure time Driving will be restricted after the procedure, you must have a person to drive you home. Labs will be drawn in preop area and once reviewed, you will be taken to radiology area for procedure. When the procedure is completed, you will be taken to outpatient where you will be monitored for several hours. You may have one visitor in this area. Other than holding anti-coagulants, patient may take other medication(s) as scheduled. Prior to your appointment date patients are instructed to hold anti-coagulants after discussing with ordering provider to stop. If unable to discontinue anti-coagulants please notify radiologist. No aspirin or warfarin (Coumadin) for 7 days prior to the procedure. No clopidogrel (Plavix), ticagrelor (Brilinta), prasugrel (Effient) or dabigatran (Pradaxa) for 5 days prior to the procedure. No rivaroxaban (Xarelto), apixaban (Eliquis), dipyridamole (Aggrenox or Persantine) or cilostazol (Pletal) for 2 days prior to the procedure. Medications to discontinue per physician: N/A Date to take last dose: N/A Please leave all valuables, including medications, at home the day of procedure. The hospital will not accept responsibility for valuables. Wear comfortable, loose fitting clothing. Follow any additional instructions given to you from ordering provider. Telephone instructions given to PT - LEVI RECINOS and asked if any additional questions and then verbalized understanding. Patient advised to call scheduling provider office or registration scheduling [phone] if any additional questions.
[2022-01-23] VITALS (9 sets, daily range): BP systolic 98–121; BP diastolic 69–84; PULSE 87–103; RESP 14–18; O2SAT 95–99
--- NOTE | ~2022-01-23 | XR_ITS ---
EXAMINATION: [id number] DATE: 01/23/2022 10:59 INDICATION: Left pleural effusion status post thoracentesis. TECHNIQUE: A single frontal view of the chest was obtained. COMPARISON: Chest CT 12/17/2021 FINDINGS: There is a small loculated left pleural effusion. There is mild atelectasis in left lower l hank zone. No pneumothorax. The heart size is normal. IMPRESSION: 1. Small loculated left pleural effusion with improvement status post thoracentesis. 2. Mild atelectasis in left lower lung zone. Reviewed, dictated and finalized at location A. IMPRESSION: 1. Small loculated left pleural effusion with improvement status post thoracent esis. 2. Mild atelectasis in left lower lung zone.
--- NOTE | ~2022-01-23 | US_ITS ---
EXAMINATION: US thoracentesis DATE: 01/23/2022 11:22 INDICATION: pleural effusion TECHNIQUE: The procedure and its risks, benefits, and alternatives were discussed with the patient. P otential risks discussed included bleeding, infection, and pneumothorax. The patient understood the r isks and agreed to proceed. The skin was prepped and draped in sterile fashion. 1% lidocaine was used for local anesthesia. Under ultrasound guidance, a 5 Fr catheter with trochar was advanced into the left pleural effusion. Fluid was aspirated. The catheter was removed, and a dressing was applied. The re were no immediate complications. FINDINGS: Ultrasound images demonstrate a left pleural effusion and the catheter within the fluid. IMPRESSION: 1. Successful ultrasound-guided thoracentesis yielding 150 mL mL of siv-tmhbm-vclvqle fluid. Reviewed, dictated and finalized at location A. IMPRESSION: 1. Successful ultrasound-guided thoracentesis yielding 150 mL mL of red-victorino- colored fluid.
[2022-01-23 11:26] LABS: pH Pleural Fluid 7.315 (7.210-7.500)
[2022-01-23 13:41] LABS: Appearance Pleural Fluid Hazy (Clear); Color Pleural Fluid Red (Colorless); Pleural fluid source Pleural fluid
[2022-01-23 13:43] LABS: Macrophages Pleural Fluid 8 %; Neutrophils Pleural Fluid 1 % (0-25)
[2022-01-23 13:46] LABS: Lymphocytes Pleural Fluid 87 %; Other Cells Pleural Fluid 4 %
[2022-01-28 06:05] LABS: Total Protein Pleural Fluid 4.2 g/dL
[2022-01-28 12:55] LABS: Amylase, Pleural Fluid 21 U/L
== END 2022-01-23 13:00 | disposition home or self-care (01) ==
PROVIDERS: PCP Internal Medicine; Referring Provider Internal Medicine Critical Care Medicine; Visit Provider Radiology Diagnostic Radiology
DX: J90 Pleural effusion, not elsewhere classified (principal)
CPT/HCPCS: 32555; 82150; 83615; 83986; 84157; 87015; 87102; 87116; 87206; 89051

== ENCOUNTER 2022-04-01 01:06 | Day surgery (SDC) | payer OTHER, SELFPAY ==
[2022-03-20 08:53] VITALS: BMI 34.4
[2022-04-01 09:40] VITALS: BP 113/75; PULSE 84; RESP 18; TEMP 36.1; O2SAT 99; BMI 34.0
[2022-04-01] MEDS: LACTATED RINGERS 1,000 ML 150 ML IV CONT (10:07)
[2022-04-01 10:10] LABS: Glucose Point of Care 137 mg/dl (65-105)
--- NOTE | 2022-04-01 10:22 | WPDANESEPPF ---
Anes - Initial Pre Proc Eval Procedure: Operation Date: 04/01/22 11:00 Proposed Procedures p Colonoscopy - Oc Lassiter MD Date/Time: 04/01/22 10:22 Surgeon: Oc Lassiter MD Pre Op Diagnosis: Abnormal CT scan, Colon Mass Patient Data Age: 56 Gender: M Height: 1.83 m Weight: 113.6 kg Last Vital Signs Temp 96.9 F L 04/01/22 09:40 Pulse 84 04/01/22 09:40 Resp 18 04/01/22 09:40 BP 113/75 04/01/22 09:40 Pulse Ox 99 04/01/22 09:40 O2 Del Method Room Air 04/01/22 09:40 Allergies Allergy/AdvReac Type Severity Reaction Status Date / Time No Known Allergies Allergy Verified 04/01/22 09:51 Home Medications Medication Instructions Recorded Confirmed Type alcohol swabs (Alcohol Prep Pads) 1 pad topical TID #100 ea 02/25/21 04/01/22 Rx blood-glucose meter #1 ea 02/25/21 04/01/22 Rx blood sugar diagnostic (Contour #100 ea 03/04/21 04/01/22 Rx Next Test Strips) lancets (Microlet Lancet) #100 ea 03/06/21 04/01/22 Rx fluticasone propionate 50 2 spray intranasal DAILY #16 grams 03/10/21 04/01/22 Rx mcg/actuation nasal spray,suspension (Flonase Allergy Relief) metformin 1,000 mg tablet 1,000 mg PO BID #180 tabs 07/21/21 04/01/22 Rx pregabalin 300 mg capsule (Lyrica) 300 mg PO BID #60 caps 11/06/21 04/01/22 Rx atorvastatin 80 mg tablet See Rx Instructions .Route 01/16/22 04/01/22 Rx .COMPLEX #90 tabs losartan 100 mg tablet See Rx Instructions .Route 01/16/22 04/01/22 Rx .COMPLEX #90 tabs zolpidem 5 mg tablet 5 mg PO QHS PRN insomnia #30 tabs 03/05/22 04/01/22 Rx adalimumab 40 mg/0.8 mL See Rx Instructions .Route .COMPLEX 03/20/22 04/01/22 History subcutaneous syringe kit (Humira) Laboratory Tests 04/01/22 10:00 POC Capillary Glucose 137 mg/dl H mg/dl (65-105) Patient hx anesthesia problems: none Family hx anesthesia problems: none Results Review: All pre-operative results and documents have been reviewed as part of the pre-operative evaluation. 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, uncontrolled Hyperlipidemia Hypertension Insomnia Pleural effusion, left Polyneuropathy Psoriasis Tachycardia Type 2 diabetes mellitus Surgical History Surgical History H/O foot surgery Right: 08/2018 Hx laparoscopic cholecystectomy Family History Family History Mother Diabetes mellitus Father Family history of lung cancer Social History Social History Social History: caffeine- Diet soda Years smoked: 15 Smoking status: Former smoker (quit 25 years ago, smoked 1 ppd x15 yr) Smoking end date: 06/21/06 Alcohol intake: current Drinks per week: 24 Living arrangements: with family Rodo Hernandez Final PreProcedure Day of Procedure 04/01/22 10:22 Patient weight: obese Heart: regular rate and rhythm Lungs: clear to auscultation Airway: Mallampati scale class II Neurological: alert and oriented Last oral intake: >/= 8 hours ASA classification: III Emergent: no Anesthetic plan: proceed Results Review: All pre-operative results and documents have been reviewed as part of the pre-operative evaluation. Informed Consent: The patient's anesthetic plan and its attendant risks and benefits were discussed with the patient/family/POA. Questions were solicited and answers provided to the satisfaction of the patient/family/POA.
--- NOTE | 2022-04-01 10:43 | PM.HPGS ---
History of Present Illness History of Present Illness Consent: Risks, benefits, and alternatives have been discussed and questions answered. Patient agrees to proceed with procedure. Chief complaint: Abnormal CT scan, Colon Mass Narrative: Lenard Castaneda is a 56 year old male referred for colon cancer screening he recently had a CT scan of the chest and incidentally there was noted to be some irregularity of the liver near the hepatic flexure. 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, uncontrolled Hyperlipidemia Hypertension Insomnia Pleural effusion, left Polyneuropathy Psoriasis Tachycardia Type 2 diabetes mellitus Surgical History Surgical History H/O foot surgery Right: 08/2018 Hx laparoscopic cholecystectomy Family History Family History Mother Diabetes mellitus Father Family history of lung cancer Social History Social History Social History: caffeine- Diet soda Years smoked: 15 Smoking status: Former smoker (quit 25 years ago, smoked 1 ppd x15 yr) Smoking end date: 06/21/06 Alcohol intake: current Drinks per week: 24 Living arrangements: with family Meds Home Medications and Allergies Home Medications Medication Instructions Recorded Confirmed Type alcohol swabs (Alcohol Prep Pads) 1 pad topical TID #100 ea 02/25/21 04/01/22 Rx blood-glucose meter #1 ea 02/25/21 04/01/22 Rx blood sugar diagnostic (Contour #100 ea 03/04/21 04/01/22 Rx Next Test Strips) lancets (Microlet Lancet) #100 ea 03/06/21 04/01/22 Rx fluticasone propionate 50 2 spray intranasal DAILY #16 grams 03/10/21 04/01/22 Rx mcg/actuation nasal spray,suspension (Flonase Allergy Relief) metformin 1,000 mg tablet 1,000 mg PO BID #180 tabs 07/21/21 04/01/22 Rx pregabalin 300 mg capsule (Lyrica) 300 mg PO BID #60 caps 11/06/21 04/01/22 Rx atorvastatin 80 mg tablet See Rx Instructions .Route 01/16/22 04/01/22 Rx .COMPLEX #90 tabs losartan 100 mg tablet See Rx Instructions .Route 01/16/22 04/01/22 Rx .COMPLEX #90 tabs zolpidem 5 mg tablet 5 mg PO QHS PRN insomnia #30 tabs 03/05/22 04/01/22 Rx adalimumab 40 mg/0.8 mL See Rx Instructions .Route .COMPLEX 03/20/22 04/01/22 History subcutaneous syringe kit (Humira) Allergies Allergy/AdvReac Type Severity Reaction Status Date / Time No Known Allergies Allergy Verified 04/01/22 09:51 Vital Signs Vital Signs - 24 hr 04/01/22 09:40 Temperature 36.1 C L Pulse Rate 84 Respiratory Rate 18 Blood Pressure 113/75 Pulse Oximetry 99 Oxygen Delivery Room Air Exam Resp: Auscultation: clear to auscultation bilaterally Cardio: Rate: regular rate Rhythm: regular rhythm GI: GI Palp: Yes Soft to palpation and No Tenderness to palpation present (GI) Assessment and Plan Assessment and plan (1) Colon cancer screening: Code(s): Z12.11 - Encounter for screening for malignant neoplasm of colon Status: Acute Assessment and Plan: Colonoscopy with possible biopsy or polypectomy or cautery or injection of substances.
[2022-04-01 11:14] VITALS: BP 115/77; PULSE 85; RESP 21; O2SAT 98
[2022-04-01 11:24] VITALS: BP 124/84; PULSE 84; RESP 18; O2SAT 98
[2022-04-01 11:34] VITALS: BP 126/94; PULSE 82; RESP 22; O2SAT 100
== END 2022-04-01 11:42 | disposition home or self-care (01) ==
PROVIDERS: PCP Internal Medicine; Visit Provider Internal Medicine Gastroenterology
PROC: 0DJD8ZZ Inspection of Lower Intestinal Tract, Via Natural or Artificial Opening Endoscopic (ICD-10-PCS; CPT 45378; principal; 2022-04-01 11:00)
DX: R93.3 Abnormal findings on diagnostic imaging of other parts of digestive tract (principal); K64.8 Other hemorrhoids; Z87.891 Personal history of nicotine dependence; I10 Essential (primary) hypertension; E78.5 Hyperlipidemia, unspecified; E11.9 Type 2 diabetes mellitus without complications
CPT/HCPCS: 45378; 82948; J2704; J7120

== ENCOUNTER 2023-03-17 09:16 | Outpatient (CLI) | payer MEDICARE, SELFPAY ==
--- NOTE | ~2023-03-17 | XR_ITS ---
XR knee RT 3V 03/17/2023 09:36 Indication: Right leg pain and numbness at the end of stump. Procedure: 2 views right knee Comparison: No prior studies for comparison. Findings: There are surgical changes consistent with adkgo-suw-usch amputation of the tibia and fibul a. No acute fracture or traumatic malalignment. Vascular calcifications are present. No evidence for osteomyelitis. No acute bone or joint abnormality. Impression: 1: No acute bone or joint abnormality. If there is concern for osteomyelitis, consider correlation [facility] MRI. Reviewed, dictated and finalized at location B. Impression: 1: No acute bone or joint abnormality. If there is concern for osteomyelitis, c onsider correlation with MRI.
== END 2023-03-17 09:17 ==
PROVIDERS: PCP Clinical Nurse Specialist; Visit Provider Clinical Nurse Specialist
DX: R20.2 Paresthesia of skin (principal); M79.661 Pain in right lower leg; Z89.511 Acquired absence of right leg below knee
CPT/HCPCS: 73562

== ENCOUNTER 2023-07-30 09:14 | Outpatient (CLI) | payer MEDICARE, SELFPAY ==
--- NOTE | ~2023-07-30 | CT_ITS ---
EXAMINATION: CT femur RT w con DATE: 07/30/2023 09:50 INDICATION: Right lower limb amputation stump plane TECHNIQUE: High resolution computed tomography (CT) of the right femur and remaining proximal lower l eg was performed with 100 mL Omnipaque-350 intravenous contrast. Additional sagittal and coronal lindsey nstructions were performed. Automated exposure control and iterative reconstruction technique were em ployed. The dose-length product was 1362.64 mGy-cm. COMPARISON: Radiograph dated 03/17/2023 FINDINGS: Again seen is a right rnrgl-mjl-udtw amputation. There is soft tissue density replacing the subcutane ous fat density overlying a prominent osteophyte along the medial margin of the osteotomy suggesting response to friction. No evident overlying skin ulceration or associated abscess. No aggressive appea ring osteolysis or increased density of the fatty marrow to suggest osteomyelitis. No abnormal masses . Sclerotic bone islands at the right medial femoral condyle and at the right supra-acetabular region . Right hip and knee joint spaces appear relatively preserved no joint effusion. There are some scatt ered atherosclerotic plaque without evident hemodynamically significant stenosis along the right comm on femoral, superficial femoral and popliteal arteries. Prostatomegaly. The bladder is normal. Fluid in the distal colon consistent with nonspecific diarrhea. No pathologically enlarged pelvic or inguin al lymphadenopathy. IMPRESSION: 1. Right ubdzz-gjf-jxvw amputation with focal replacement of the subcutaneous fat with soft tissue de nsity overlying a prominent osteophyte at the medial aspect of the tibial osteotomy which suggests re sponse to friction. No evident skin ulceration, abscess or osteomyelitis. Reviewed, dictated and finalized at location A. T [employer]ER IMPRESSION: 1. Right srksd-smk-enfg amputation with focal replacement of the subcutaneous f at with soft tissue density overlying a prominent osteophyte at the medial aspe ct of the tibial osteotomy which suggests response to friction. No evident skin ulceration, abscess or osteomyelitis.
[2023-07-30 09:44] LABS: Estimated Glomerular Filt Rate > 60
== END 2023-07-30 09:15 | disposition home or self-care (01) ==
PROVIDERS: PCP Clinical Nurse Specialist; Visit Provider Clinical Nurse Specialist
DX: T87.89 Other complications of amputation stump (principal); M79.609 Pain in unspecified limb
CPT/HCPCS: 73701; Q9967

== ENCOUNTER 2023-08-30 07:25 | Outpatient (RCR) | payer MEDICARE, SELFPAY ==
[2023-08-02 12:45] VITALS: BMI 27.1
== END 2023-10-31 23:59 | disposition home or self-care (01) ==
LOC: ANHWOC 07:25
PROVIDERS: PCP Clinical Nurse Specialist; Visit Provider Clinical Nurse Specialist
DX: T87.89 Other complications of amputation stump (principal); E11.42 Type 2 diabetes mellitus with diabetic polyneuropathy; L97.819 Non-pressure chronic ulcer of other part of right lower leg with unspecified severity; Z89.511 Acquired absence of right leg below knee
CPT/HCPCS: 99213; 99214; G0463

== ENCOUNTER 2023-09-30 07:29 | Outpatient (CLI) | payer MEDICARE, SELFPAY ==
--- NOTE | ~2023-09-30 | MR_ITS ---
EXAMINATION: MR femur RT wo/w con DATE: 09/30/2023 08:49 INDICATION: Complication of amputation stump. Assess for neuroma with chronic pain and numbness post right asifc-sbn-rbtx amputation for years prior. TECHNIQUE: Magnetic resonance imaging (MRI) of the right femur including the knee and proximal most r ight lower leg was performed without and with 19 mL Multihance intravenous contrast. Sequences includ ed axial, sagittal and coronal T1-weighted FSE and fluid sensitive FSE STIR. Precontrast axial T1-domingo ghted FS FSE and post contrast axial and coronal T1-weighted FS FSE were also obtained. The contralat eral left thigh and proximal lower leg included on the coronal images. COMPARISON: CT dated 08/09/2023 FINDINGS: Evaluation below the level of the knee is limited by some motion artifact as well as magnetic field i nhomogeneity resulting in bands of artifact most prominent on the fat-saturated imaging. Right below- the-knee amputation with normal marrow signal extending to the tibial and fibular osteotomy margins. No evident reactive edema, fracture, osteomyelitis or other pathologic marrow replacing process. Righ t knee appears normal with physiologic amount fluid. The menisci and cartilage appear normal although assessment is significantly more limited than on the standard small ogkdb-zt-qxvk dedicated MRI of t he knee. There is mild relative fatty atrophy of the musculature in the right lower limb relative to the contralateral left lower limb likely physiologic response to the amputation secondary decreased u michelle relative to the contralateral right lower limb. Visualized portion of the tendons are unremarkab le. The sciatic nerve in the visualized proximal portions of its peroneal and tibial nerve branches a ppears normal. Assessment below level of the knee joint line is limited by combination the small size of these structures and the motion and magnetic field inhomogeneity artifact. Visualized vasculature at the right thigh is unremarkable. No abnormal masses, fluid collections or abnormally enhancing le sions identified. IMPRESSION: 1. Changes consistent with chronic right vadqk-lot-zdtk amputation. No neuroma identified although ev aluation ermym-opy-wrfw level of the knee is limited by motion and magnetic field inhomogeneity artif act at the margins of the uuyec-rq-hoyu which encompasses all but the proximal most right femur. Coul d consider evaluation with a smaller field of view MRI centered at the right knee/proximal calf. Reviewed, dictated and finalized at location B. IMPRESSION: 1. Changes consistent with chronic right ikbgd-thw-qekj amputation. No neuroma identified although evaluation wormm-ail-cvji level of the knee is limited by m otion and magnetic field inhomogeneity artifact at the margins of the field-of- view which encompasses all but the proximal most right femur. Could consider ev aluation with a smaller field of view MRI centered at the right knee/proximal c axel.
== END 2023-09-30 07:30 | disposition home or self-care (01) ==
PROVIDERS: PCP Internal Medicine; Visit Provider Nurse Practitioner
DX: T87.89 Other complications of amputation stump (principal); M79.609 Pain in unspecified limb
CPT/HCPCS: 73720; A9577

== ENCOUNTER 2023-10-07 15:25 | Outpatient (CLI) | payer MEDICARE, SELFPAY ==
--- NOTE | ~2023-10-07 | MR_ITS ---
EXAMINATION: MR knee RT wo/w con DATE: 10/07/2023 17:09 INDICATION: Other complications of amputation stump at the right knee. TECHNIQUE: Magnetic resonance imaging (MRI) of the right knee was performed without intravenous contr ast. Sequences included coronal PD-weighted FSE, coronal PD-weighted FS FSE, sagittal T2-weighted FS E, sagittal PD-weighted FS FSE and axial PD weighted fat saturated FSE. COMPARISON: CT dated 08/09/2023 FINDINGS: Medial and lateral menisci appear normal. Cartilage in the medial and lateral compartments appears re latively preserved. There is small osteophyte at the site of deep chondral ulceration at the inferior aspect of the lateral patellar facet. Patellofemoral cartilage appears otherwise unremarkable. No ri ght knee joint effusion. The anterior and posterior cruciate ligaments as well as the medial and fibu lar collateral ligaments are normal. The extensor mechanism is normal. The visualized medial and late ral hamstring tendons as well as the iliotibial band are normal. There is a itoap-aqk-lkwf amputation. There is normal bone marrow signal with no evident fracture, os teomyelitis or pathologic marrow replacing process. There is some heterotopic ossification along the medial margin of the distal tibial osteotomy. There is mild increased fluid signal and non masslike e nhancement overlying the osteophyte and the posterior osteotomy margin consistent with bursitis. No a bscess or other abnormal loculated fluid collections. There is no definitive neuroma identified along the distal tibial or peroneal nerves or other abnormally enhancing masses. There is expected moderat e fatty atrophy of the remaining musculature at the proximal calf. IMPRESSION: 1. Right rddbi-tvy-utsb amputation with mild bursitis overlying heterotopic ossification along the po sterior medial tibial osteotomy margin. No evident neuroma at the distal tibial or peroneal nerves. Reviewed, dictated and finalized at location A. IMPRESSION: 1. Right riqhf-pzi-gfha amputation with mild bursitis overlying heterotopic oss ification along the posterior medial tibial osteotomy margin. No evident neurom a at the distal tibial or peroneal nerves.
== END 2023-10-07 15:26 | disposition home or self-care (01) ==
PROVIDERS: PCP Internal Medicine; Visit Provider Internal Medicine
DX: T87.89 Other complications of amputation stump (principal); M79.661 Pain in right lower leg
CPT/HCPCS: 73723; A9577

== ENCOUNTER 2024-09-11 10:38 | Outpatient (CLI) | payer MEDICARE, SELFPAY ==
--- NOTE | ~2024-09-11 | XR_ITS ---
EXAMINATION: XR chest 2V Exam Date/Time: 09/11/2024 10:46 CDT HISTORY: R05.9 - Cough, unspecified Comparison: 01/23/2022, 12/31/2021; CTPA 12/17/2021. RESULT: Lines, tubes, and devices: None. Lungs and pleura: No pneumothorax or focal consolidation. Linear scarring/atelectasis in the left lo wer lung. Chronic left pleural thickening and costophrenic angle blunting, similar to the study in 01/23/2022, decreased since the study of 12/31/2021. Cardiomediastinal silhouette: Stable. Possible small pericardial fluid collection. Other: No acute osseous or upper abdominal finding. IMPRESSION: No acute cardiopulmonary process. Chronic left pleural thickening versus small possibly loculated eff usion. Possible small chronic pericardial effusion. Reviewed, dictated and finalized at location K. IMPRESSION: No acute cardiopulmonary process. Chronic left pleural thickening versus small possibly loculated effusion. Possible small chronic pericardial effusion.
== END 2024-09-11 10:39 | disposition home or self-care (01) ==
LOC: GOSHIMG 10:39
PROVIDERS: PCP Clinical Nurse Specialist; Visit Provider Clinical Nurse Specialist
DX: R91.8 Other nonspecific abnormal finding of lung field (principal)
CPT/HCPCS: 71046

== ENCOUNTER 2024-09-18 15:39 | Outpatient (CLI) | payer MEDICARE, SELFPAY ==
--- NOTE | ~2024-09-18 | CT_ITS ---
Clinical Indication: Pericardial effusion CT Scan of the Chest with Contrast: Technique: Contiguous sections were acquired throughout the chest after intravenous administration of 75 cc of Omnipaque 350. Dose reduction technique was used on this scan by utilizing automated exposu re control and iterative reconstruction technique. The dose-length product (DLP) was 297.18 mGy-cm. COMPARISON: 12/17/2021 Findings: There is no evidence of any significant mediastinal, hilar or axillary lymphadenopathy. There is no c entral pulmonary embolus. There is no evidence of aortic dissection or aneurysm. Small chronic appearing left pleural effusion present. No right pleural effusion. No pericardial effu clement. The lungs are clear, aside from minimal left basilar atelectasis. Images through the upper abdomen reveal no abnormalities. Impression: Small chronic appearing left pleural effusion with thickening of the pleural lining. No pericardial effusion. Reviewed, dictated and finalized at [facility]. Impression: Small chronic appearing left pleural effusion with thickening of the pleural li crista. No pericardial effusion.
--- OUTSIDE RECORDS SUMMARY | 2024-09-18 17:07 | XMS_ITS | Clinical Summary ---
Author Organization [facility] Address [address] [place] [address] Care Team Providers Care Trade Show Coordinator Name Role Phone Yoav Goldsmith DO Primary Care Provider [phone] Source Comments [facility],non-owned Affiliates and Associated Physician Practices is amultiple site organization consisting of ambulatory clinics and hospital sitesin [place], [place], [place] and [place]. This disclosure is being madepursuant to the Care Everywhere program and may not contain all information available regarding this patient. Last updated 18.[facility] Arav Allergies No known active allergies Medications * Be aware that medications may not be up to date on this document. Alwaysverify current medications with the patient. Medication Sig Dispensed Refills Start Date End Date Status atorvastatin (LIPITOR) 40 MG tablet Take 1 tablet by mouth once daily 3 12/10/2017 Active DULoxetine (CYMBALTA) 60 MG capsule Take 1 capsule by mouth once daily 2 12/10/2017 Active losartan (COZAAR) 25 MG tablet Take 1 tablet by mouth once daily 3 11/02/2017 Active morphine CR 12hr (MS CONTIN) 15 MG tablet Take 1 tablet by mouth every 12 hours as needed 0 12/10/2017 Active LYRICA 100 MG capsule Take 1 capsule by mouth 2 times daily 2 11/18/2017 Active zolpidem (AMBIEN) 5 MG tablet Take 1 tablet by mouth at bedtime 0 11/10/2017 Active metFORMIN CR 24hr modified (GLUMETZA) 1000 MG (MOD) tablet Take 1,000 mg by mouth 2 times daily Active sulfamethoxazole-tr imethoprim (BACTRIM DS; SEPTRA DS) 800-160 MG tablet Take 1 tablet by mouth once daily 0 07/29/2018 Active adalimumab (HUMIRA) 40 MG/0.8ML injectionIndication s:Other psoriasis Inject 0.8 mL subcutaneously every 14 days 2 Each 3 09/21/2019 Active Additional Information Patient not taking.Reported on 12/13/2019 clobetasol (TEMOVATE) 0.05 % ointmentIndications :Rash and other nonspecific skin eruption,Other psoriasis Apply to rash areas, twice a day, PRN, 30 days supply 60 g 2 12/13/2020 Active Active Problems No known active problems Family History Medical History Relation Name Comments Cancer - Other Father Asthma Neg Hx CVA Neg Hx Cancer - Breast Neg Hx Cancer - Skin, Melanoma Neg Hx Cancer - Skin, Non Melanoma Neg Hx Eczema Neg Hx Hemophilia Neg Hx Psoriasis Neg Hx Relation Name Status Comments Father Social History Tobacco Use Types Packs/Day Years Used Date Smoking Tobacco: Former Cigarettes Smokeless Tobacco: Never Alcohol Use Standard Drinks/Week Comments Yes 3 (1 standard drink = 0.6 oz pur e alcohol) Sex and Gender Information Value Date Recorded Sex Assigned at Not on file Gender Identity Not on file Sexual Orientation Not on file Plan of Treatment Health Maintenance Due Date Last Done Comments COLOGUARD (AGES 45-75) - COL ON CA SCREENING 1966 COLON MONITORING 1966 COLONOSCOPY - COLON CA SCREENING 1966 CT COLONOGRAPHY - COLON CA SCREENING 1966 Colorectal Cancer Screening 1966 FIT - COLON CA SCREENING 1966 FLEX SIG - COLON CA SCREENING 1966 MEDICARE AWV 12 MONTHS 1966 HIV SCREENING 1981 DTAP/TDAP/TD VACCINES (1 - Tdap) 1985 HEPATITIS B VACCINE (1 of 3 - 19+ 3-dose series) 1985 PNEUMOCOCCAL VACCINE 50+ (1 of 1 - PCV) 2016 ZOSTER VACCINE (1 of 2) 2016 COVID-19 VACCINE (2023-2 5 season) 2024 INFLUENZA VACCINE (#1) 2024 DEPRESSION SCREENING 06/21/2024 MEDICARE AWV CALENDAR YEAR 2024 HEPATITIS C SCREENING Completed 03/10/2018 , 03/10/2018 HIB VACCINE Aged Out No longer eligi ble based on patient's age to complete this topic HPV VACCINE Aged Out No longer eligi ble based on patient's age to complete this topic MENINGOCOCCAL (Group B) VACCINE SHARED DECISION-MAKING Aged Out No longer eligible based on patient's age to complete this topic MENINGOCOCCAL GROUPS A/C/Y/W VACCINE Aged Out No longer eligible b ased on patient's age to complete this topic PNEUMOCOCCAL VACCINE Aged Out No long er eligible based on patient's age to complete this topic Procedures Procedure Name Priority Date/Time Associated Diagnosis Comments HEPATITIS C AB W/RFLX TO HCV RNA QN PCR 03/10/2018 7:24 AM CDT from Last 3 Months or Most Recently Relevant to Health Maintenance Results * HEPATITIS C AB W/RFLX TO HCV RNA QN PCR (03/10/2018 7:24 AM CDT) Hepatitis C Antibody NON-REACTI VE NON-REACT [facility] [employer] Signal to Cut-Off 0.01 <1.00 [facility] Comment: REPORT COMMENT: FASTING:YES Test Performed at: [facility] [address] [place] [address] MACIEL BLEDSOE DO,MPH 03/10/2018 7:24 AM CDT 03/10/2018 7:25 AM CDT Hina Hilton MD LAB - CHEMISTRY [facility]ENDRA [facility]OD[facility] [address] [place] [address] from Last 3 Months or Most Recently Relevant to Health Maintenance Care Teams Trade Show Coordinator Relationship Specialty Start Date End Date Yoav Goldsmith DO PCP - General 12/31/17
--- OUTSIDE RECORDS SUMMARY | 2024-09-18 17:07 | XMS_ITS | Clinical Summary ---
Author Organization [facility] Address [address] [place] [address] Phone Care Team Providers Care Plumber Maintenance Name Role Phone LeylabobYoav isaacs Johann Primary Care Provider Allergies No known active allergies Medications atorvastatin (LIPITOR) 40 MG Tablet Take 60 mg by mouth daily. Active zolpidem (AMBIEN) 5 MG Tablet Take 1 Tab by mouth nightly as needed for Sleep. 30 Tab 7 Active losartan (COZAAR) 25 MG Tablet Take 100 mg by mouth daily. 8 Active DULoxetine (CYMBALTA) [address] Particles Take 60 mg by mouth 2 times daily. 8 Active LYRICA 100 MG Capsule Take one capsule by mouth 2 times daily 2 8 Active Adalimumab (HUMIRA PEN SC) 40 mg by Subcutaneous route every 14 days. Active Pregabalin 300 MG Capsule take 1 capsule by mouth twice daily 0 9 Active metFORMIN (GLUCOPHAGE) 1000 MG Tablet take 1 tablet by mouth twice daily 0 9 Active metoprolol Succinate (TOPROL-XL) 50 MG TABLET SR 24 HR take 1 tablet by mouth every day 2 9 Active Bismuth Tribromoph-Saad olatum (XEROFORM PETROLAT GAUZE 1 X8 ) Misc 1 Units by Apply externally route daily. 30 Each 3 9 Active Gauze Pads & Dressings (ABDOMINAL PAD) 8 X10 Pads 1 Units by Does not apply route daily. 30 Each 3 9 Active Additional Information Patient not taking.Reported on 08/02/2019 Gauze Pads & Dressings (GAUZE DRESSING) 4 X4 Pads 1 Units by Does not apply route daily. 60 Each 3 9 Active Additional Information Patient not taking.Reported on 08/02/2019 Active Problems Problem Noted Date Diagnosed Date Diabetic ulcer of right midf oot associated with type 2 diabetes mellitus, with fat layer exposed 01/07/2021 Peripheral vascular disease 08/03/2019 Chronic osteomyelitis of right foot 08/03/2019 Hx of BKA, right 06/05/2019 Charcot's joint of right foot 09/14/2018 Diabetic ulcer of right midf oot associated with type 2 diabetes mellitus, with fat layer exposed 09/14/2018 Dermatophytosis of nail 01/07/2018 Ingrown nail 01/07/2018 Diabetic polyneuropathy asso ciated with type 2 diabetes mellitus 05/21/2017 Acute osteomyelitis of toe of right foot 017 Type 2 diabetes mellitus, the [facility] long-term current use of insulin (<HCC>) 04/27/2017 Hypertension 04/27/2017 Charcot foot due to diabetes mellitus 04/27/2017 Hyperlipidemia 04/27/2017 Hyponatremia 04/27/2017 Resolved Problems Problem Noted Date Diagnosed Date Resolved Date Diabetic ulcer of toe of rig ht foot associated with type 2 diabetes mellitus, limited to breakdown of skin 05/21/2017 01/07/2018 Immunizations Immunization Administration Dates Next Due Influenza Vaccine, Quadrivalent, PF 04/28/2017() Pneumococcal Vaccine Adult - 23 Valent 7() Family History Medical History Relation Name Comments Cancer Father Heart Attack Father Diabetes Mother High Cholesterol Mother No Known Problems Sister Relation Name Status Comments Father Mother Alive Sister Alive Social History Tobacco Use Types Packs/Day Years Used Date Smoking Tobacco: Former Cigarettes 1 13 1 - 04/27/1997 Smokeless Tobacco: Never Tobacco Cessation:Counseling Given: Yes Alcohol Use Standard Drinks/Week Comments Yes 1 (1 standard drink = 0.6 oz pur e alcohol) RARELY Sexually Active Control Partners Comments Yes Female Sex and Gender Information Value Date Recorded Sex Assigned at Not on file Legal Sex Male 1:24 PM MILL RECORDER Gender Identity Not on file Sexual Orientation Not on file Last Filed Vital Signs Vital Sign Reading Time Taken Comments Blood Pressure 123/76 05/27/2021 10:30 PM MILL RECORDER Pulse 102 05/27/2021 10:30 PM MILL RECORDER Temperature 36.8 C (98.2 F) 05/27/2021 6:19 PM MILL RECORDER Respiratory Rate 22 05/27/2021 10:30 PM MILL RECORDER Oxygen Saturation 99% 05/27/2021 10:30 PM MILL RECORDER Inhaled Oxygen Concentration - - Weight 104.3 kg (230 lb) 05/27/2021 6:16 PM MILL RECORDER Height 182.9 cm (6') 05/27/2021 6:16 PM MILL RECORDER Body Mass Index 31.19 05/27/2021 6:16 PM MILL RECORDER Plan of Treatment Health Maintenance Due Date Last Done Comments Diabetes: Eye Exam 1966 Hepatitis C Virus (HCV) Screening 1966 Hepatitis B Immunization (1 of 3 - 19+ 3-dose series) 1985 Pneumococcal Immunization (50+ years) (1 of 2 - PCV) 1985 Zoster Immunization (1 of 2) 1985 Colonoscopy 12/01/2011 Colorectal Cancer Screening 12/01/2011 Cologuard 2016 Immunochemical Fecal Occult Blood 2016 Diabetes: Hemoglobin A1c 10/25/2017 04/27/2017 Diabetes: Foot Exam 04/27/2018 04/27/2017 SARS-COV-2 Immunization (3 - Moderna risk series) 03/18/2021 02/18/2021, 01/07/2021 PSA Discussion 2021 Diabetes: Nephropathy Screening 05/27/2022 05/27/2021, 06/09/2017, 06/01/2017, Additional history exists Influenza Immunization (#1) 2024 Respiratory Syncytial Virus (RSV) Immunization (Adult) (1 - 1-dose 75+ series) 2041 DTaP/Tdap/Td Immunization Discontinued 09/09/2019 TdaP Immunization Completed 09/09/2019 Meningococcal Immunization (ACWY) Aged Out No longer eligible based on patient's age to complete this topic Rotavirus Immunization Aged Out No lo nger eligible based on patient's age to complete this topic Procedures Procedure Name Priority Date/Time Associated Diagnosis Comments CMP (COMPREHENSIVE METABOLIC PANEL) STAT 05/27/2021 6:10 PM MILL RECORDER HEMOGLOBIN A1C W/ ESTIMATED GLUCOSE STAT 04/27/2017 9:39 AM MILL RECORDER from Last 3 Months or Most Recently Relevant to Health Maintenance Results * (ABNORMAL) CMP (Comprehensive Metabolic Panel) (05/27/2021 6:10 PM MILL RECORDER) SODIUM 134(L) 136 - 144 mmol/L 05/27/2021 7:10 PM MILL RECORDER [facility] POTASSIUM 3.1(L) 3.5 - 5.1 mmol/L 05/27/2021 7:10 PM [facility] CHLORIDE 96(L) 100 - 110 mmol/L 05/27/2021 7:10 PM [facility] CO2, VENOUS 21(L) 22 - 32 mmol/L 05/27/2021 7:10 PM [facility] ANION GAP 20.1(H) 8.0 - 20.0 mmol/L 05/27/2021 7:10 PM [facility] GLUCOSE 248(H) 70 - 99 mg/dL 05/27/2021 7:10 PM [facility] BUN 10 6 - 20 mg/dL 05/27/2021 7:10 PM [facility] CREATININE, BLOOD 0.72(L) 0.80 - 1.30 mg/dL 05/27/2021 7:10 PM [facility] BUN/CREATININE RATIO 14 12 - 20 ratio 05/27/2021 7:10 PM [facility] TOTAL PROTEIN 7.6 6.0 - 8.3 g/dL 05/27/2021 7:10 PM [facility] ALBUMIN 4.2 3.5 - 5.2 g/dL 05/27/2021 7:10 PM [facility] Comment: The colormetric methods used for the determination of Albumin may lead to falsely elevated test results in patients suffering from renal failure or insufficiency due to interference with other proteins. A/G RATIO 1.2 1.0 - 2.0 05/27/2021 7:10 PM MILL RECORDER [facility] CALCIUM 9.6 8.9 - 10.3 mg/dL 05/27/2021 7:10 PM MILL RECORDER [facility] T BILI 2.8(H) <=1.2 mg/dL 05/27/2021 7:10 PM MILL RECORDER [facility] SGOT (AST) 129(H) <=40 U/L 05/27/2021 7:10 PM MILL RECORDER [facility] SGPT (ALT) 116(H) <=41 U/L 05/27/2021 7:10 PM [facility] ALKALINE PHOSPHATASE 222(H) 40 - 130 U/L 05/27/2021 7:10 PM [facility] GFR, EST. NONAFRICAN >60 >=60 05/27/2021 7:10 PM [facility] GFR, EST. >60 >=60 021 7:10 PM [facility] Comment: Creatinine Clearance is the preferred criteria for selecting drug dose adjustments in renally impaired patients. The GFR is provided as additional pertinent clinical information. GFR is reported in mL/min/1.73 sq m. Blood Venipuncture / Unknown 05/27/2021 6:10 PM MILL RECORDER 05/27/2021 6:40 PM MILL RECORDER Alexander Ocasio MD CHEMISTRY ORDERABLES Alejandra meléndez Result [facility] [address] [place] [address] * Hemoglobin A1C w/ Estimated Glucose (04/27/2017 9:39 AM MILL RECORDER) HGB-A1C 6.2 4.4 - 6.4 % 04/27/2017 10:26 AM MILL RECORDER [facility] Est Average Glucose 131.2 mg/dL 04/27/2017 10:26 AM MILL RECORDER [facility] Blood specimen (specimen) Venous Catheter (IV) / Unknown 04/27/2017 9:39 AM MILL RECORDER 04/27/2017 9:48 AM MILL RECORDER Narrative [facility] - 04/27/2017 10:26 AM MILL RECORDER HEMOGLOBIN A1C: DIABETIC PATIENTS: WELL-CONTROLLED: 6.2 - 7.0 INTERMEDIATE WELL-CONTROLLED: 7.0 - 9.0 POORLY-CONTROLLED: >9.0 us Noel Gonzalez MD CHEMISTRY ORDERABLES Final Result [facility] [address] [facility] [place] [address] from Last 3 Months or Most Recently Relevant to Health Maintenance Insurance MEDICARE C [employer] Advance Directives * Full Code (Latest Code Status on File) Date Activated Date Inactivated Comments 05/29/2019 9:11 AM 05/27/2021 6:07 PM * Full Code Date Activated Date Inactivated Comments 05/15/2019 12:36 PM 05/17/2019 7:04 PM CPR-Full Treatment: FULL ARREST: Attempt Resuscitation/CPR wit intubation and mechanical ventilation. PRE-ARREST: Use entire range of life support measures to stabilize the patient. * Full Code Date Activated Date Inactivated Comments 09/26/2018 8:42 AM 05/15/2019 6:04 AM * Full Code Date Activated Date Inactivated Comments 05/03/2017 8:11 AM 01/10/2018 3:53 PM * Full Code Date Activated Date Inactivated Comments 04/27/2017 2:46 PM 04/30/2017 7:24 PM CPR-Full Tr eatment: FULL ARREST: Attempt Resuscitation/CPR wit intubation and mechanical ventilation. PRE-ARREST: Use entire range of life support measures to stabilize the patient. Care Teams Plumber Maintenance Relationship Specialty Start Date End Date Yoav Goldsmith DO [address] [facility] [place] [address] PCP - General Internal Medicine 04/27/17
--- OUTSIDE RECORDS SUMMARY | 2024-09-18 17:07 | XMS_ITS | Patient Health Record ---
Author Organization [facility] Billing Info Address [address] [place] [address] Care Team Providers Care Sewer And Drain Technician Name Role Phone BISHNU MANZO Primary Care Provider Allergies Allergen (clinical drug ingredient) Drug/Non Drug Allergy documented on EMR Reaction Allergy Type Onset Date Status lisinopril Lisinopril intolerance Drug Allergy Act chandler Reason For Referral No Information Medications Medication SIG (Take, Route, Frequency, Duration) Notes Start Date End Date Status Triamcinolone Acetonide 0.5 % 1 application to affected area Externally Twice a day for 30 days 05/06/2015 Active Glucose Test Strips - Patient Choice of Test Strips DME check blood glucose 2 times per day capillary in-vitro, dx; E11.9) for 30 day(s) 05/19/2016 Active Amlodipine Besylate 2.5 MG 1 tablet Oral ly Once a day for 30 Active Methadone HCl 10 MG 1 tablet Orally BID for 30 days vu Active Lyrica 200 MG TAKE 1 CAPSULE BY [facility] 3 TIMES DAILY Orally Q8H for 30 Active Amaryl 2 MG 1 tablet with breakf ast or the first main meal of the day Orally Once a day for 90 days 11/08/2015 Active Cymbalta 60 MG 1 capsule Orally Onc e a day for 1 month Active Glucose Test Lancet Device - Patient Choice of Lancet Device DME check blood glucose 2 times per day capillary in-vitro (Dx:E11.9) for 1 month 05/19/2016 Active Gemfibrozil 600 MG TAKE 1 TABLET TWICE A DAY for 30 Active Zolpidem Tartrate 10 MG 1 tablet at bedt erica as needed Orally Once a day for 1 month Active Atorvastatin Calcium 40 MG TAKE 1 TABLET EVERY DAY Orally Daily for 90 days Active Janumet 50-500 MG 1 tablet with meals Orally Twice a day for 90 days 02/18/2015 Active Blood Glucose Monitor System w/Device as directed test blood glucose levels 2 times a day In-Vitro (Dxa: E11.9)a for 1 month 05/19/2016 Active Glimepiride 2 TAKE 1 TABLET BY MAY TH WITH BREAKFAST OR THE FIRST MEAL OF THE DAY for 90 Active Social History Tobacco Use: Social History Observation Description Date Details (start date - stop date) Never Smoker NA - NA Tobacco Status: Question Answer Notes Patient is a never smoker Section Notes: 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 20 pack year history Living Will: No Exercise Historywork Living Situationmarried (JACI) Problems Problem Type SNOMED Code ICD Code Onset Dates Problem Status W/U Status Risk Notes Problem 239417443 Type 2 diabetes mellitus with diabetic polyneuropathy (E11.42) Active confirmed Problem 831784795 Dyslipidemia (E78.5) Active confirmed Problem 0640888 Essential hypertension, benign (I10) Active confirmed Problem 61874543 Charcot foot due to diabetes mellitus (E11.610) Active confirmed Problem 1215544 Personal history of noncompliance with medical treatment, presenting hazards to health (Z91.19) Active confirmed Problem 69492736 Mononeuritis of unspecified site (G58.9) Active confirmed Problem 82168749 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 Plan Of Treatment No Information Insurance Providers Payer Name Payer Address Payer Phone Subscriber Number Group Number Insured Name Patient Relationship to Insured Coverage Start Date Coverage End Date [employer] OPEN ACCESS HMO POS [address] [place], [place] [phone] [phone] [id number] Jaci Castaneda Spouse - patient is the spouse of the insured 6 5 Medical (General) History Medical History History ICD Code Diabetes mellitus without me ntion of complication, type II or unspecified type, not stated as uncontrolled 250.00 Essential hypertension, benign 401.1 Other and unspecified hyperlipidemia 272 .4 Mononeuritis of unspecified site 355.9 Polyneuropathy in diabetes 357.2 Arthropathy associated with neurological disorders 713.5 Personal history of noncompl iance with medical treatment, presenting hazards to health V15.81 Surgical History Surgery Date(Month/Year) Tonsillectomy ;
== END 2024-09-18 15:40 | disposition home or self-care (01) ==
PROVIDERS: PCP Clinical Nurse Specialist; Visit Provider Clinical Nurse Specialist
DX: R93.89 Abnormal findings on diagnostic imaging of other specified body structures (principal); I31.39 Other pericardial effusion (noninflammatory); R06.02 Shortness of breath
CPT/HCPCS: 71260; Q9967

== ENCOUNTER 2024-11-08 00:35 | Day surgery (SDC) | payer MEDICARE, SELFPAY ==
[2024-11-06 13:46] VITALS: BMI 27.1
--- OUTSIDE RECORDS SUMMARY | 2024-11-08 00:37 | XMS_ITS | Clinical Summary ---
Author Organization [facility] Address [address] [place] [address] Care Team Providers Care Endoscopy Tech Name Role Phone Yoav Goldsmith DO Primary Care Provider [phone] Source Comments [facility],non-owned Affiliates and Associated Physician Practices is amultiple site organization consisting of ambulatory clinics and hospital sitesin [place], [place], [place] and [place]. This disclosure is being madepursuant to the Care Everywhere program and may not contain all information available regarding this patient. Last updated 18.[facility] Allergies No known active allergies Medications * Be aware that medications may not be up to date on this document. Alwaysverify current medications with the patient. atorvastatin (LIPITOR) 40 MG tablet Take 1 tablet by mouth once daily 3 12/11/19 18 Active DULoxetine (CYMBALTA) 60 MG capsule Take 1 capsule by mouth once daily 2 12/11/19 18 Active losartan (COZAAR) 25 MG tablet Take 1 tablet by mouth once daily 3 11/03/19 18 Active morphine CR 12hr (MS CONTIN) 15 MG tablet Take 1 tablet by mouth every 12 hours as needed 0 12/11/19 18 Active LYRICA 100 MG capsule Take 1 capsule by mouth 2 times daily 2 11/19/19 18 Active zolpidem (AMBIEN) 5 MG tablet Take 1 tablet by mouth at bedtime 0 11/11/19 18 Active metFORMIN CR 24hr modified (GLUMETZA) 1000 MG (MOD) tablet Take 1,000 mg by mouth 2 times daily Active sulfamethoxazol e-trimethoprim (BACTRIM DS; SEPTRA DS) 800-160 MG tablet Take 1 tablet by mouth once daily 0 07/29/19 19 Active adalimumab (HUMIRA) 40 MG/0.8ML injectionIndica tions:Other psoriasis Inject 0.8 mL subcutaneously every 14 days 2 Each 3 09/21/19 20 Active Additional Information Patient not taking.Reported on 12/13/2019 clobetasol (TEMOVATE) 0.05 % ointmentIndicat ions:Rash and other nonspecific skin eruption,Other psoriasis Apply to rash areas, twice a day, PRN, 30 days supply 60 g 2 12/14/19 21 Active Active Problems No known active problems [...] at Not on file Legal Sex Male 10:47 AM CDT Gender Identity Not on file Sexual Orientation Not on file Plan of Treatment Health Maintenance Due Date Last Done Comments COLOGUARD (AGES 45-75) - COL ON CA SCREENING 1966 COLON MONITORING 1966 COLONOSCOPY - COLON CA SCREENING 1966 CT COLONOGRAPHY - COLON CA SCREENING 1966 Colorectal Cancer Screening 1966 FIT - COLON CA SCREENING 1966 FLEX SIG - COLON CA SCREENING 1966 HIV SCREENING 1981 DTAP/TDAP/TD VACCINES (1 - Tdap) 1985 HEPATITIS B VACCINE (1 of 3 - 19+ 3-dose series) 1985 PNEUMOCOCCAL VACCINE 50+ (1 of 1 - PCV) 2016 ZOSTER VACCINE (1 of 2) 2016 COVID-19 VACCINE ( - 2023-2 5 season) 2024 DEPRESSION SCREENING 06/21/2024 INFLUENZA VACCINE (Season Ended) 2025 HEPATITIS C SCREENING Completed 03/10/2018 , 03/10/2018 [...] Hepatitis C Antibody NON-REACTI VE NON-REACT [facility] Signal to Cut-Off 0.01 <1.00 [facility] Comment: REPORT COMMENT: FASTING:YES Test Performed at: [facility] [address] [place] [address] MACIEL BLEDSOE DO,MPH 03/10/2018 7:24 AM CDT 03/10/2018 7:25 AM CDT Hina Hilton MD LAB - CHEMISTRY ORDERABLES nal Result [facility] [address] [place] [address] from Last 3 Months or Most Recently Relevant to Health Maintenance Insurance [employer] MEDICARE Care Teams Endoscopy Tech Relationship Specialty Start Date End Date Yoav Goldsmith DO PCP - General 12/31/17
--- OUTSIDE RECORDS SUMMARY | 2024-11-08 00:37 | XMS_ITS | Patient Health Record ---
Author Organization [facility] Billing Info Address [address] [place] [id number] Care Team Providers Care Burlap Spreader Name Role Phone BISHNU MANZO Primary Care [...] Lyrica 200 MG TAKE 1 CAPSULE BY [facility] 3 TIMES DAILY Orally Q8H for [...] Problem Status W/U Status Risk Notes Problem 470633953 Type 2 diabetes mellitus with diabetic polyneuropathy (E11.42) Active confirmed Problem 910291983 Dyslipidemia (E78.5) Active confirmed Problem 7524362 Essential hypertension, benign (I10) Active confirmed Problem 90935665 Charcot foot due to diabetes mellitus (E11.610) Active confirmed Problem 5517789 Personal history of noncompliance with medical treatment, presenting hazards to health (Z91.19) Active confirmed Problem 62173034 Mononeuritis of unspecified site (G58.9) Active confirmed Problem 03413189 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
--- OUTSIDE RECORDS SUMMARY | 2024-11-08 00:37 | XMS_ITS | Clinical Summary ---
Author Organization [facility] Address [address] [facility] [place] [address] Phone Care Team Providers Care Manufacturing Baker Name Role Phone LeylabobYoav isaacs Johann Primary [...] right foot 017 Type 2 diabetes mellitus, [facility] long-term current use of insulin (<HCC>) [...] on file Legal Sex Male 1:24 PM MAILROOM CLERK Gender Identity Not on file Sexual Orientation Not on file Last Filed Vital Signs Vital Sign Reading Time Taken Comments Blood Pressure 123/76 05/27/2021 10:30 PM MAILROOM CLERK Pulse 102 05/27/2021 10:30 PM MAILROOM CLERK Temperature 36.8 C (98.2 F) 05/27/2021 6:19 PM MAILROOM CLERK Respiratory Rate 22 05/27/2021 10:30 PM MAILROOM CLERK Oxygen Saturation 99% 05/27/2021 10:30 PM MAILROOM CLERK Inhaled Oxygen Concentration - - Weight 104.3 kg (230 lb) 05/27/2021 6:16 PM MAILROOM CLERK Height 182.9 cm (6') 05/27/2021 6:16 PM MAILROOM CLERK Body Mass Index 31.19 05/27/2021 6:16 PM MAILROOM CLERK Plan of Treatment Health Maintenance Due Date [...] (COMPREHENSIVE METABOLIC PANEL) STAT 05/27/2021 6:10 PM MAILROOM CLERK HEMOGLOBIN A1C W/ ESTIMATED GLUCOSE STAT 04/27/2017 9:39 AM MAILROOM CLERK from Last 3 Months or Most Recently Relevant to Health Maintenance Results * (ABNORMAL) CMP (Comprehensive Metabolic Panel) (05/27/2021 6:10 PM MAILROOM CLERK) SODIUM 134(L) 136 - 144 mmol/L 05/27/2021 7:10 PM MAILROOM CLERK [facility] POTASSIUM 3.1(L) 3.5 - 5.1 mmol/L 05/27/2021 7:10 PM [facility] CHLORIDE 96(L) 100 - 110 mmol/L 05/27/2021 7:10 PM [facility] CO2, VENOUS 21(L) 22 - 32 mmol/L 05/27/2021 7:10 PM [facility] ANION GAP 20.1(H) 8.0 - 20.0 mmol/L 05/27/2021 7:10 PM [facility] GLUCOSE 248(H) 70 - 99 mg/dL 05/27/2021 7:10 PM [facility] BUN 10 6 - 20 mg/dL 05/27/2021 7:10 PM [facility] CREATININE, BLOOD 0.72(L) 0.80 - 1.30 mg/dL 05/27/2021 7:10 PM [facility] BUN/CREATININE RATIO 14 12 - 20 ratio 05/27/2021 7:10 PM [facility] TOTAL PROTEIN 7.6 6.0 - 8.3 g/dL 05/27/2021 7:10 PM [facility] ALBUMIN 4.2 3.5 - 5.2 g/dL 05/27/2021 7:10 PM [facility] Comment: The colormetric methods used for the determination of Albumin may lead to falsely elevated test results in patients suffering from renal failure or insufficiency due to interference with other proteins. A/G RATIO 1.2 1.0 - 2.0 05/27/2021 7:10 PM MAILROOM CLERK [facility] CALCIUM 9.6 8.9 - 10.3 mg/dL 05/27/2021 7:10 PM MAILROOM CLERK [facility] T BILI 2.8(H) <=1.2 mg/dL 05/27/2021 7:10 PM MAILROOM CLERK [facility] SGOT (AST) 129(H) <=40 U/L 05/27/2021 7:10 PM MAILROOM CLERK [facility] SGPT (ALT) 116(H) <=41 U/L 05/27/2021 7:10 PM [facility] ALKALINE PHOSPHATASE 222(H) 40 - 130 U/L 05/27/2021 7:10 PM [facility] GFR, EST. NONAFRICAN >60 >=60 05/27/2021 7:10 PM [facility] GFR, EST. >60 >=60 021 7:10 PM [facility] Comment: Creatinine Clearance is the preferred criteria for selecting drug dose adjustments in renally impaired patients. The GFR is provided as additional pertinent clinical information. GFR is reported in mL/min/1.73 sq m. Blood Venipuncture / Unknown 05/27/2021 6:10 PM MAILROOM CLERK 05/27/2021 6:40 PM MAILROOM CLERK Alexander Ocasio MD CHEMISTRY ORDERABLES Alejandra meléndez Result [facility] [address] [place] [address] * Hemoglobin A1C w/ Estimated Glucose (04/27/2017 9:39 AM MAILROOM CLERK) HGB-A1C 6.2 4.4 - 6.4 % 04/27/2017 10:26 AM MAILROOM CLERK [facility] Est Average Glucose 131.2 mg/dL 04/27/2017 10:26 AM MAILROOM CLERK [facility] Blood specimen (specimen) Venous Catheter (IV) / Unknown 04/27/2017 9:39 AM MAILROOM CLERK 04/27/2017 9:48 AM MAILROOM CLERK Narrative [facility] - 04/27/2017 10:26 AM MAILROOM CLERK HEMOGLOBIN A1C: DIABETIC PATIENTS: WELL-CONTROLLED: 6.2 - 7.0 INTERMEDIATE WELL-CONTROLLED: 7.0 - 9.0 POORLY-CONTROLLED: >9.0 us Noel Gonzalez MD CHEMISTRY ORDERABLES Final Result [facility] [address] [facility] [place] [address] from Last 3 Months or Most Recently [...] measures to stabilize the patient. Care Teams Manufacturing Baker Relationship Specialty Start Date End Date Yoav Goldsmith DO [address] [facility] [place] [address] PCP - General Internal Medicine 04/27/17
--- OUTSIDE RECORDS SUMMARY | 2024-11-08 00:37 | XMS_ITS | Referral Summary ---
Author Organization [facility] Address [address] [place] [address] Care Team Providers Care Magazine Editor Name Role Phone Yoav Goldsmith DO Primary Care Provider [phone] Renee Cook MD Unavailable [phone] Encounters Date Type Department Care Team Description 09/21/2024 7:13 PM CDT - 09/21/2024 9:34 PM CDT Emergency [facility] Emergency Department [address] [place] [address] Song Noel MD Gastroesophageal reflux disease, unspecified whether esophagitis present (Primary Dx) Discharge Disposition: Discharge to home or self care from Last 3 Months Allergies No known active allergies Medications clobetasoL (TEMOVATE) 0.05 % ointmentIndicat ions:Plaque Psoriasis Apply topically as needed 1 Active atorvastatin (LIPITOR) 80 mg tablet Take by mouth daily 1 Active Contour Next Test Strips strip 1 Active Trulicity 3 mg/0.5 mL pen injector once a week Mondays. [address] (CYMBALTA) 60 mg capsule Take 60 mg by mouth 2 (two) times a day 8 Active losartan (COZAAR) 100 mg tablet Take by mouth daily 1 Active metFORMIN (GLUCOPHAGE) 1,000 mg tablet Take 1,000 mg by mouth 2 (two) times a day with meals 1 Active pregabalin (LYRICA) 300 mg capsule Take by mouth 2 (two) times a day 1 Active zolpidem (AMBIEN) 5 mg tablet Take 5 mg by mouth nightly as needed 1 Active HYDROcodone-luis alfredo taminophen (NORCO) 5-325 mg per tabletIndicatio ns:Pain Take 1 tablet by mouth every 4 (four) hours as needed for pain 30 tablet 1 Active Active Problems Problem Noted Date Diagnosed Date Type 2 diabetes mellitus Hypertension Hyperlipidemia Diabetic neuropathy associat ed with type 2 diabetes mellitus Resolved Problems Problem Noted Date Diagnosed Date Resolved Date Choledocholithiasis 05/28/2021 07/07/19 22 Overview (05/28/2021): Added automatically from request for surgery [id number] Calculus of gallbladder with acute cholecystitis and obstruction 05/28/2021 07/07/2021 Acute cholecystitis 07/07/19 22 Jaundice 07/07/2021 Social History Tobacco Use Types Packs/Day Years Used Date Smoking Tobacco: Former Smokeless Tobacco: Former AUDIT-C Answer Date Recorded Q1: How often do you have a drink containing alcohol? 4 or more times a week 05/30/2021 Q2: How many drinks containi ng alcohol do you have on a typical day when you are drinking? 3 or 4 Frequency of Binge Drinking Not on file 05/21 PHQ-2 Answer Date Recorded PHQ-2 Total Score (If total score is 3 or more points, staff should administer the PHQ-9) 0 05/28/2021 Personal Safety Answer Date Recorded Have you ever been in or are you currently in a harmful physical or emotional relationship or is someone making you feel afraid or unsafe? Denies 09/21/2024 Sex and Gender Information Value Date Recorded Sex Assigned at Not on file Legal Sex Male 10:00 AM CDT Gender Identity Not on file Sexual Orientation Not on file Last Filed Vital Signs Vital Sign Reading Time Taken Comments Blood Pressure 147/79 09/21/2024 9:15 PM CDT Pulse 78 09/21/2024 9:15 PM CDT Temperature 37 C (98.6 F) 09/21/2024 2:43 PM CDT Respiratory Rate 12 09/21/2024 9:15 PM CDT Oxygen Saturation 97% 09/21/2024 9:15 PM CDT Inhaled Oxygen Concentration - - Weight 90.7 kg (200 lb) 09/21/2024 2:43 PM CDT Height 182.9 cm (6') 09/21/2024 2:43 PM CDT Body Mass Index 27.12 09/21/2024 2:43 PM CDT Plan of Treatment Not on file Procedures Procedure Name Priority Date/Time Associated Diagnosis Comments CT CHEST PE ABDOMEN PELVIS W CONTRAST ED 09/21/2024 8:13 PM CDT LIPASE Add-On 09/21/2024 7:29 PM CDT MAGNESIUM Routine 09/21/2024 7:29 PM CDT PRO B-TYPE NATRIURETIC PEPTIDE STAT 09/21/2024 7:29 PM CDT D-DIMER, QUANTITATIVE STAT 09/21/2024 7:29 PM CDT TROPONIN T HIGH-SENSITIVITY 4-HR Timed 09/21/2024 7:29 PM CDT XR CHEST 1 VIEW ED 09/21/2024 2:58 PM CDT EGFR STAT 09/21/2024 2:52 PM CDT DIFFERENTIAL AUTO STAT 09/21/2024 2:5 2 PM CDT TROPONIN T HIGH-SENSITIVITY SERIES (BASELINE, 2HR, 4HR, 6HR) STAT 09/21/2024 2:52 PM CDT CBC WITH AUTO DIFFERENTIAL STAT 09/21/2024 2:52 PM CDT COMPREHENSIVE METABOLIC PANEL STAT 09/21/2024 2:52 PM CDT ECG 12-LEAD STAT 09/21/2024 2:47 PM CDT from Last 3 Months Results * CT Chest PE (CTA) Abdomen Pelvis W Contrast (09/21/2024 8:13 PM CDT) Anatomical Region Laterality Modality Body N/A Computed Tomogra phy 09/21/2024 8:38 PM CDT Narrative 09/21/2024 8:45 PM CDT EXAM DESCRIPTION: CT CHEST PE (CTA) ABDOMEN PELVIS W CONTRAST REASON FOR STUDY: Pulmonary embolism (PE) suspected, low to intermediate prob, neg D-dimer Shortness of breath and difficulty swallowing x 3 weeks TECHNIQUE: CT angiogram of the chest with routine abdomen and pelvis performed with intravenous and without oral contrast using helical scanning technique with dynamic intravenous contrast injection. Reconstructed coronal and sagittal MPR images reviewed. All images stored on PACS. 3D MIP images of the chest rendered on scanning unit and reviewed at time of interpretation. Automated exposure control was used as a dose optimization technique for this examination. CONTRAST TYPE/DOSE: 100mL of IOVERSOL 350 MG IODINE/ML INTRAVENOUS SYRINGE injected via intravenous COMPARISON: CT abdomen and pelvis 05/31/2021 FINDINGS: CHEST CHEST VASCULATURE: No acute pulmonary thromboembolism. LUNGS: Cluster of tree-in-bud nodularities in the right middle lobe and superior segment of the right lower lobe. No lobar consolidation. No suspicious pulmonary nodule or mass. PLEURA: New small left pleural effusion and basilar atelectasis. No pneumothorax. MEDIASTINUM/ROB: No identified masses or abnormal nodes. HEART: Heart size is normal with no pericardial effusion. AXILLA: No adenopathy. CHEST WALL: No masses. No subcutaneous air. HARDWARE/LINES/TUBES: None. MUSCULOSKELETAL CHEST: No significant abnormality. ABDOMEN/PELVIS LIVER: Decreased attenuation as seen with fibrofatty changes GALLBLADDER: Surgically absent BILE DUCTS: No intrahepatic or extrahepatic ductal dilatation. SPLEEN: Normal size. No focal lesions. PANCREAS: No identified cystic or solid masses. No significant calcifications. No adjacent inflammation or peripancreatic fluid collections. Pancreatic duct not dilated. ADRENALS: Normal. KIDNEYS/URINARY TRACT: No identified significant cystic or solid masses. No visualized stones. No hydronephrosis or hydroureter. Symmetric enhancement. Urinary bladder is unremarkable. GI: No dilated bowel loops. No obvious wall thickening. Normal appendix. No significant diverticular disease. PERITONEUM: No ascites or free air. RETROPERITONEUM: No mass or adenopathy. REPRODUCTIVE: No significant abnormality. VASCULATURE ABDOMEN: Atherosclerotic disease in the aorta, iliacs, and coronary arteries MUSCULOSKELETAL ABDOMEN PELVIS: No acute finding. OTHER: No significant abnormality. IMPRESSION: No evidence of acute pulmonary embolism. Cluster of tree-in-bud nodularities in the right middle and lower lobes, likely infectious/inflammatory. New small left pleural effusion and basilar atelectasis. No acute findings in the abdomen and pelvis. THIS IS AN ELECTRONICALLY VERIFIED FINAL REPORT 09/21/2024 8:45 PM - Electronically signed by Rosemarie Zuñiga M.D. FT: FT Report ID: [id number] Reading Location: [id number] Procedure Note Rosemarie Root MD - 09/21/2024 EXAM DESCRIPTION: CT CHEST PE (CTA) ABDOMEN PELVIS W CONTRAST REASON FOR STUDY: Pulmonary embolism (PE) suspected, low to intermediateprob, neg D-dimer Shortness of breath and difficulty swallowing x 3 weeks TECHNIQUE: CT angiogram of the chest with routine abdomen and pelvisperformed with intravenous and without oral contrast using helical scanningtechnique with dynamic intravenous contrast injection. Reconstructed coronal and sagittal MPR images reviewed. All images stored on PACS. 3D MIP images ofthe chest rendered on scanning unit and reviewed at time of interpretation. Automated exposure control was used as a dose optimization technique forthis examination. CONTRAST TYPE/DOSE: 100mL of IOVERSOL 350 MG IODINE/ML INTRAVENOUS SYRINGE injected via intravenous COMPARISON: CT abdomen and pelvis 05/31/2021 FINDINGS: CHEST CHEST VASCULATURE: No acute pulmonary thromboembolism. LUNGS: Cluster of tree-in-bud nodularities in the right middle lobe and superior segment of the right lower lobe. No lobar consolidation. No suspicious pulmonary nodule or mass. PLEURA: New small left pleural effusion and basilar atelectasis. No pneumothorax. MEDIASTINUM/ROB: No identified masses or abnormal nodes. HEART: Heart size is normal with no pericardial effusion. AXILLA: No adenopathy. CHEST WALL: No masses. No subcutaneous air. HARDWARE/LINES/TUBES: None. MUSCULOSKELETAL CHEST: No significant abnormality. ABDOMEN/PELVIS LIVER: Decreased attenuation as seen with fibrofatty changes GALLBLADDER: Surgically absent BILE DUCTS: No intrahepatic or extrahepatic ductal dilatation. SPLEEN: Normal size. No focal lesions. PANCREAS: No identified cystic or solid masses. No significant calcifications. No adjacent inflammation or peripancreatic fluidcollections. Pancreatic duct not dilated. ADRENALS: Normal. KIDNEYS/URINARY TRACT: No identified significant cystic or solid masses.No visualized stones. No hydronephrosis or hydroureter. Symmetricenhancement. Urinary bladder is unremarkable. GI: No dilated bowel loops. No obvious wall thickening. Normal appendix.No significant diverticular disease. PERITONEUM: No ascites or free air. RETROPERITONEUM: No mass or adenopathy. REPRODUCTIVE: No significant abnormality. VASCULATURE ABDOMEN: Atherosclerotic disease in the aorta, iliacs, and coronary arteries MUSCULOSKELETAL ABDOMEN PELVIS: No acute finding. OTHER: No significant abnormality. IMPRESSION: No evidence of acute pulmonary embolism. Cluster of tree-in-bud nodularities in the right middle and lower lobes, likely infectious/inflammatory. New small left pleural effusion and basilar atelectasis. No acute findings in the abdomen and pelvis. THIS IS AN ELECTRONICALLY VERIFIED FINAL REPORT 09/21/2024 8:45 PM - Electronically signed by Rosemarie Zuñiga M.D. FT: FT Report ID: [id number] Reading Location: [place] [id number] us Song Noel MD IMG CT PROCEDURES Final Resu lt * Troponin T high-sensitivity 4-hour (09/21/2024 7:29 PM CDT) Trop T hs 7 <=22 ng/L Comment: Interpretive Data For further hscTnT resources including the diagnostic algorithm and an aid in interpretation, copy and paste this link: https://nrl.testcatalog.org/show/hsTrop Current Interpretive Data last revised 2020. Trop T hs delta -2 ng/L [facility] ([facility]) Trop T hs interp Insignificant [facility] ([place]) Blood 09/21/2024 7:29 PM CDT 09/21/2024 7:35 PM CDT us Song Noel MD LAB BLOOD ORDERABLES Final R esult Performing Organization Address [facility] Co de Phone Number [facility] [place]) [address] [facility] Department [place] [address] * (ABNORMAL) Pro B-type natriuretic peptide (09/21/2024 7:29 PM CDT) NT-proBNP 472(H) <=300 pg/mL Comment: Interpretive Comments: A. Dyspnea in Acute Care Setting All Ages: < 300 pg/ml, acute heart failure unlikely. < 50 yrs: 300 - 450 pg/ml, further investigation warranted. > 450 pg/ml, acute heart failure likely. 50 - 74 yrs: 300 - 900 pg/ml, further investigation warranted. > 900 pg/ml, acute heart failure likely . > or = 75 yrs: 450 - 1800 pg/ml, further investigation warranted. > 1800 pg/ml, acute heart failure likely. B. Non-acute Setting < 75 yrs < 125 pg/ml, rules out heart failure. > or = 125 pg/ml, further investigation warranted. > or = 75 yrs < 450 pg/ml, rules out heart failure. > or = 450 pg/ml, further investigation warranted. - Knowledge of each individual patient's NT-proBNP range may be more useful than using similar cut-points for every patient. Please note that marked elevations in NT-proBNP levels may be observed in state other than Left Ventricular Congestive Failure, including: acute coronary syndromes, right heart strain/failure (including pulmonary embolism and cor pulmonale), critical illness, renal failure, as well as advanced age. - References: 1. Yennifer MANN et.al. Eur Heart J. 2006:27:330-337. 2. Nory RW, Jovani LEIJA. J. AM Jess Cardiol: Cardiovasc Imag. 2009;2: 216- 225. Interpretive Data Last Revised Date: 2018. Blood 09/21/2024 7:29 PM CDT 09/21/2024 7:35 PM CDT Song Noel MD LAB BLOOD ORDERABLES Final R john Performing Organization Address City/[facility]/ZIP Co de Phone Number [facility] ([place]) [address] [place] [address] * (ABNORMAL) D-dimer, quantitative (09/21/2024 7:29 PM CDT) Pathologist [facility] D-Dimer 1,855(H) <=499 ng/mL FEU [facility] ([place]) Comment: Interpretive data FDA approved the D-dimer, in conjunction with a low or moderate pretest probability score, to exclude venous thromboembolic events (VTE) (PE and DVT) in outpatients when the D-dimer result is < 500 ng/ml FEU. Evidence supports using an age-adjusted D-dimer cut-off for outpatients older than 50 (age x 10) to improve specificity without sacrificing sensitivity. Example: age 68, VTE cut-off 680 ng/ml FEU. References; Ginny HAY et al. Brit Med J. 2013;346:f2492. Tracy et al. Annals Int Med. 2015;163:701-11. Current interpretive data was last revised on 2019. Blood 09/21/2024 7:29 PM CDT 09/21/2024 7:35 PM CDT Song Noel MD LAB BLOOD ORDERABLES Final R esult Performing Organization Address City/[facility]/ZIP Co de Phone Number [facility]) [address] [place] [address] * Magnesium (09/21/2024 7:29 PM CDT) [facility] [address] Magnesium 1.8 1.4 - 2.5 mg/dL Blood 09/21/2024 7:29 PM CDT 09/21/2024 7:35 PM CDT Song Noel MD LAB BLOOD ORDERABLES Final R esult [facility] ([place]) [address] [place] [address] * Lipase (09/21/2024 7:29 PM CDT) Lipase 92 10 - 99 Units/L Blood 09/21/2024 7:29 PM CDT 09/21/2024 8:37 PM CDT us Song Noel MD LAB BLOOD ORDERABLES Final R esult [facility] ([place]) [address] [facility] Department [place] [address] * XR Chest 1 Vw Portable (if patient condition/safety warrant portable) (09/21/2024 2:58 PM CDT) Anatomical Region Laterality Modality Body, Chest N/A Computed Radiogr aphy 09/21/2024 3:39 PM CDT Narrative 09/21/2024 3:41 PM CDT EXAM DESCRIPTION: XR CHEST 1 VIEW REASON FOR STUDY: Acute shortness of breath for 1 week. TECHNIQUE: Single frontal radiographic view(s) of the chest. COMPARISON: Relevant portions of CT abdomen pelvis without contrast 05/31/2021. FINDINGS: LUNGS: No focal consolidation. No right pleural effusion. Small left pleural effusion. HEART/MEDIASTINUM: Trachea midline. Heart normal in size and contour. Hilar structures unremarkable. Tortuosity of the descending thoracic aorta. LINES/TUBES: None. BONES: No acute osseous abnormality. IMPRESSION: Small left pleural effusion. THIS IS AN ELECTRONICALLY VERIFIED FINAL REPORT 09/21/2024 3:41 PM - Electronically signed by Reilly Reno M.D. MITCHELL: MITCHELL Report ID: [id number] Reading Location: [id number] Procedure Note Reilly Reno MD - 09/21/2024 EXAM DESCRIPTION: XR CHEST 1 VIEW REASON FOR STUDY: Acute shortness of breath for 1 week. TECHNIQUE: Single frontal radiographic view(s) of the chest. COMPARISON: Relevant portions of CT abdomen pelvis without contrast 05/31/2021. FINDINGS: LUNGS: No focal consolidation. No right pleural effusion. Small left pleural effusion. HEART/MEDIASTINUM: Trachea midline. Heart normal in size and contour.Hilar structures unremarkable. Tortuosity of the descending thoracic aorta. LINES/TUBES: None. BONES: No acute osseous abnormality. IMPRESSION: Small left pleural effusion. THIS IS AN ELECTRONICALLY VERIFIED FINAL REPORT 09/21/2024 3:41 PM - Electronically signed by Reilly Reno M.D. MITCHELL: MITCHELL Report ID: [id number] Reading Location: [id number] us Song Noel MD IMG XR PROCEDURES Final Resu lt * Troponin T high-sensitivity series (baseline, 2hr, 4hr, 6hr) (09/21/2024 2:52 PM CDT) Trop T hs 9 <=22 ng/L Comment: Interpretive Data For further hscTnT resources including the diagnostic algorithm and an aid in interpretation, copy and paste this link: https://nrl.testcatalog.org/show/hsTrop Current Interpretive Data last revised 2020. Blood 09/21/2024 2:52 PM CDT 09/21/2024 2:57 PM CDT Song Noel MD LAB BLOOD ORDERABLES Final R esult [facility] [place] [address] [facility] Department [place] [address] * eGFR (09/21/2024 2:52 PM CDT) eGFR >90 >=60 mL/min/1. 73 m2 Comment: Interpretive Data Reference Interval Normal >/= 90 mL/min/1.73m2 Mildly decreased* 60 - 89 mL/min/1.73m2 Mildly to moderately decreased 45 - 59 mL/min/1.73m2 Moderately to severely decreased 30 - 44 mL/min/1.73m2 Severely decreased 15 - 29 mL/min/1.73m2 Kidney Failure < 15 mL/min/1.73m2 *Relative to young adult level Estimated glomerular filtration rate is determined by the 2020 CKD-EPI equation recommended by the National Kidney Foundation (A Unifying Approach to GFR Estimation: Recommendations of the NKF-ASK Task Force on Reassessing the Inclusion of Race in Diagnosing Kidney Disease, JASN 2020). The CKD-EPI equation should not be used for patients with unstable renal function and has not been validated in children and those over 70. Current interpretive data was last reviewed 2021. Blood 09/21/2024 2:52 PM CDT 09/21/2024 2:57 PM CDT us Song Noel MD LAB BLOOD ORDERABLES Final R esult [facility] ([place]) [address] [facility] Department [place] [address] * Differential, auto (09/21/2024 2:52 PM CDT) Neutrophil abs 3.92 1.50 - 6.50 K/cumm Imm gran abs 0.02 0.00 - 0.10 K/cumm [facility] ([place]) Lymphocyte abs 0.97 0.80 - 3.30 K/cumm [facility] ([place]) Monocyte abs 0.44 0.20 - 0.80 K/cumm [facility] ([place]) Eosinophil abs 0.25 0.00 - 0.50 K/cumm [facility] ([place]) Basophil abs 0.04 0.00 - 0.10 K/cumm [facility] ([place]) Neutrophil pct 69.5 % [facility] ([place]) Comment: Interpretive Data Percent cell count reference ranges are not reported, since discordance with absolute values may lead to misinterpretation of CBC data. Current Interpretive Data was last revised on 2017. Imm gran pct 0.4 % [facility] ([place]) Comment: Interpretive Data Percent cell count reference ranges are not reported, since discordance with absolute values may lead to misinterpretation of CBC data. Current Interpretive Data was last revised on 2017. Lymphocyte pct 17.2 % [facility] ([place]) Comment: Interpretive Data Percent cell count reference ranges are not reported, since discordance with absolute values may lead to misinterpretation of CBC data. Current Interpretive Data was last revised on 2017. Monocyte pct 7.8 % [facility] ([place]) Comment: Interpretive Data Percent cell count reference ranges are not reported, since discordance with absolute values may lead to misinterpretation of CBC data. Current Interpretive Data was last revised on 2017. Eosinophil pct 4.4 % [facility] ([place]) Comment: Interpretive Data Percent cell count reference ranges are not reported, since discordance with absolute values may lead to misinterpretation of CBC data. Current Interpretive Data was last revised on 2017. Basophil pct 0.7 % [facility] ([place]) Comment: Interpretive Data Percent cell count reference ranges are not reported, since discordance with absolute values may lead to misinterpretation of CBC data. Current Interpretive Data was last revised on 2017. Blood 09/21/2024 2:52 PM CDT 09/21/2024 2:57 PM CDT us Song Noel MD LAB BLOOD ORDERABLES Final R esult [facility] ([place]) [address] [facility] Department [place] [address] * (ABNORMAL) CBC with auto differential (09/21/2024 2:52 PM CDT) WBC 5.64 3.80 - 9.90 K/cumm Hgb 12.8(L) 13.0 - 17.5 g/dL [facility] ([place]) Hct 37.8(L) 38.9 - 50.3 % [facility] ([place]) Plt 418(H) 150 - 400 K/cumm [facility] ([place]) MPV 8.8(L) 9.1 - 12.3 fL [facility] ([place]) RBC 3.97(L) 4.30 - 5.80 M/cumm [facility] ([place]) MCV 95.2 81.3 - 96.4 fL [facility] ([place]) MCH 32.2 27.1 - 33.3 pg [facility] MCHC 33.9 32.3 - 35.7 g/dL [facility] ([place]) RDW CV 13.4 11.1 - 14.9 % [facility] ([place]) RDW SD 47.4 35.7 - 48.1 fL [facility] ([place]) NRBC abs 0.02(H) 0.00 - 0.01 K/cumm [facility] ([place]) Blood 09/21/2024 2:52 PM CDT 09/21/2024 2:57 PM CDT Song Noel MD LAB BLOOD ORDERABLES Final R esult [facility] ([place]) [address] [facility] Department [place] [address] * (ABNORMAL) Comprehensive metabolic panel (09/21/2024 2:52 PM CDT) Sodium 135 135 - 145 mmol/L Potassium, pl 4.2 3.3 - 4.9 mmol/L [facility] ([place]) Chloride 103 97 - 110 mmol/L [facility] ([place]) CO2 22 22 - 32 mmol/L [facility] ([place]) Anion gap 10 2 - 15 mmol/L [facility] ([place]) BUN 7 6 - 25 mg/dL [facility] ([place]) Creatinine 0.85 0.80 - 1.30 mg/dL [facility] Glucose 114 70 - 199 mg/dL [facility] ([place]) Comment: Interpretive Data Fasting glucose >/= 126 mg/dl is diagnostic for diabetes. Fasting is defined as no caloric intake for at least 8 hours. Fasting glucose between 100 mg/dl to 125 mg/dl is diagnostic of prediabetes. In a patient with classic symptoms of hyperglycemia or hyperglycemic crisis, a random glucose >/= 200 mg/dl is diagnostic for diabetes. In the absence of unequivocal hyperglycemia, results should be confirmed by repeat testing. The classification and Diagnosis of Diabetes Diabetes Care 2022; 46: S19-S40. Current interpretive data was last revised 2022. Calcium 9.0 8.5 - 10.3 mg/dL [facility] ([place]) Bilirubin, total 0.4 0.1 - 1.2 mg/dL [facility] ([place]) Protein, pl 6.3(L) 6.5 - 8.5 g/dL [facility] ([place]) Albumin 3.7 3.5 - 5.0 g/dL [facility] ([place] Alk phos 39(L) 40 - 130 Units/L [facility] ([place]) ALT 24 7 - 55 Units/L [facility] ([place]) AST 30 10 - 50 Units/L [facility] ([place]) Blood 09/21/2024 2:52 PM CDT 09/21/2024 2:57 PM CDT Song Noel MD LAB BLOOD ORDERABLES Final R esult Performing Organization Address City/[facility] Co de Phone Number [facility] ([place]) [address] [facility] Department [place] [address] * ECG 12 lead (09/21/2024 2:47 PM CDT) 09/21/2024 2:47 PM CDT Narrative [facility] - 09/21/2024 3:25 PM CDT Vent Rate: 86 bpm RR Interval: 691 msec VT Interval: 143 msec QRS Duration: 95 msec QT Interval: 352 msec QTC Interval: 396 msec P-R-T Danese: 85 - 39 - 31 degrees IMPRESSION: SINUS RHYTHM POSSIBLE RIGHT VENTRICULAR CONDUCTION DELAY [RSR (QR) IN V1/V2] BORDERLINE ECG NO CHANGE FROM PREVIOUS TRACING NOTED Electronically Signed By: Presley Nielson MD Song Noel MD ECG ORDERABLES Final Result Performing Organization Address [facility] Co de Phone Number [facility] Sociercise [facility] from Last 3 Months Insurance [facility] [place] [employer] MEDIC[employer] HMO Advance Directives For more information, please contact: [phone] * Full Code (Latest Code Status on File) Date Activated Date Inactivated Comments 05/29/2021 2:32 PM 06/02/2021 7:31 PM * Full Code Date Activated Date Inactivated Comments 05/29/2021 6:33 AM 05/29/2021 2:32 PM * Full Code Date Activated Date Inactivated Comments 05/28/2021 8:10 PM 05/29/2021 6:33 AM Care Teams Magazine Editor Relationship Specialty Start Date End Date Yoav Goldsmith DO PCP - General 09/08/19 Renee Cook MD Consulting Physician Gastroenterology 06/02/21
--- OUTSIDE RECORDS SUMMARY | 2024-11-08 00:37 | XMS_ITS | Clinical Summary ---
Author Organization [facility] Address [address] [place] [address] Care Team Providers Care Plate Former Name Role Phone Yoav Goldsmith DO Primary Care Provider [phone] Renee Cook MD Unavailable [phone] Allergies No known active allergies Medications clobetasoL [...] (05/28/2021): Added automatically from request for surgery [id number] Calculus of gallbladder with acute cholecystitis and obstruction 05/28/2021 07/07/2021 Acute cholecystitis 07/07/19 22 Jaundice 07/07/2021 Encounters Date Type Department Care Team Description 09/21/2024 7:13 PM CDT - 09/21/2024 9:34 PM CDT Emergency [facility] Emergency Department [address] [place] [address] Song Noel MD Gastroesophageal reflux disease, unspecified whether esophagitis present (Primary Dx) Discharge Disposition: Discharge to home or self care from Last 3 Months Surgical History Surgery Date Site/Laterality Comments BELOW KNEE LEG AMPUTATION Right Medical History Medical History Date Comments Type 2 diabetes mellitus (HCC) Hypertension Peripheral vascular disease Social History Tobacco Use Types Packs/Day Years [...] on file Sexual Orientation Not on file Obstetrics History Last Filed Vital Signs Vital Sign Reading [...] 09/21/2024 2:43 PM CDT Plan of Treatment Health Maintenance Due Date Last Done Comments Albumin Creatinine Ratio, Urine 1965 Colon Cancer Screening-Colonoscopy 1965 Hemoglobin A1C 1966 Hepatitis C Screening 1966 Prostate Cancer Screening-PSA 1966 Dilated Eye Exam 1966 Foot Exam 1966 Lipid Panel 1966 DTaP/Tdap/Td Vaccine (1 - Tdap) 1977 Hepatitis B Screening 1984 Regular Well Visit/Exam 18-64 1984 Pneumococcal vaccine <65 (1 of 2 - PCV) 1985 Zoster Vaccine (1 of 2) 2016 Depression Screening 05/28/2022 05/28/2021 Influenza Vaccine (Season Ended) 2025 eGFR 09/21/2025 09/21/2024, 05/21, 06/01/2021, Additional history exists Procedures Procedure Name Priority Date/Time Associated Diagnosis [...] Rosemarie Zuñiga M.D. FT: FT Report ID: [id number] Reading Location: [id number] Procedure Note Rosemarie Root MD - 09/21/2024 [...] Rosemarie Zuñiga M.D. FT: FT Report ID: [id number] Reading Location: [id number] Song Noel MD IMG CT PROCEDURES Final [...] BLOOD ORDERABLES Final R esult [facility] ([place]) 1 [facility] Department of Laboratories [place], [place] [id number] * (ABNORMAL) Pro B-type natriuretic peptide (09/21/2024 [...] et.al. Eur Heart J. 2006:27:330-337. 2. Nory ELLIS, Jovani LEIJA. J. AM Jess Cardiol: Cardiovasc Imag. 2009;2: 216- 225. Interpretive Data Last Revised Date: 2018. Blood 09/21/2024 7:29 PM CDT 09/21/2024 7:35 PM CDT us Song Noel MD LAB BLOOD ORDERABLES Final R esult [facility] ([place]) 1 [facility] Department [place] [address] * (ABNORMAL) D-dimer, quantitative (09/21/2024 7:29 PM CDT) D-Dimer 1,855(H) <=499 ng/mL FEU [facility] ([place]) Comment: Interpretive data FDA approved the D-dimer, [...] 68, VTE cut-off 680 ng/ml FEU. References; Schouten HT et al. Brit Med J. 2013;346:f2492. Tracy et al. Annals Int Med. 2015;163:701-11. Current interpretive data was last revised on 2019. Blood 09/21/2024 7:29 PM CDT 09/21/2024 7:35 PM CDT Song Noel MD LAB BLOOD ORDERABLES Final R esult Performing Organization Address City/[facility]/ZIP Co de Phone Number [facility] Pro[facility]) 1 [place] [address] * Magnesium (09/21/2024 7:29 PM CDT) Magnesium 1.8 1.4 - 2.5 mg/dL Blood 09/21/2024 7:29 PM CDT 09/21/2024 7:35 PM CDT Song Noel MD LAB BLOOD ORDERABLES Final R esult Performing Organization Address [facility] Co de Phone Number [facility]) [address] [place] [address] * Lipase (09/21/2024 7:29 PM CDT) Lipase 92 10 - 99 Units/L Blood 09/21/2024 7:29 PM CDT 09/21/2024 8:37 PM CDT Song Noel MD LAB BLOOD ORDERABLES Final R esult Performing Organization Address [facility] Co de Phone Number [facility]) [address] [place] [address] [place] [address] * XR Chest 1 Vw Portable (if [...] Reilly Reno M.D. MITCHELL: MITCHELL Report ID: [id number] Reading Location: [id number] Procedure Note Reilly Reno MD - 09/21/2024 [...] Reilly Reno M.D. MITCHELL: MITCHELL Report ID: [id number] Reading Location: [id number] Song Noel MD IMG XR PROCEDURES Final [...] ORDERABLES Final R esult Performing Organization Address City/[facility]/ZIP Co de Phone Number [facility] ([place]) 1 [facility] [place] [address] * eGFR (09/21/2024 2:52 PM CDT) eGFR [...] ORDERABLES Final R esult Performing Organization Address City/[facility]/ZIP Co de Phone Number [facility] ([place]) 1 [facility] [place] [address] * Differential, auto (09/21/2024 2:52 PM CDT) [...] LAB BLOOD ORDERABLES Final R esult [facility] (PETE) 1 [facility] [place] [address] * (ABNORMAL) CBC with auto differential (09/21/2024 [...] (PETE) MCV 95.2 81.3 - 96.4 fL [facility] ([facility]) MCH 32.2 27.1 - 33.3 pg [facility] ([facility]) MCHC 33.9 32.3 - 35.7 g/dL [facility] ([facility]) RDW CV 13.4 11.1 - 14.9 % [facility] ([facility]) RDW SD 47.4 35.7 - 48.1 fL [facility] ([facility]) NRBC abs 0.02(H) 0.00 - 0.01 K/cumm [facility] ([facility]) Blood 09/21/2024 2:52 PM CDT 09/21/2024 2:57 PM CDT Song Noel MD LAB BLOOD ORDERABLES Final R esult [facility] ([facility]) 1 [facility] [place] [address] * (ABNORMAL) Comprehensive metabolic panel (09/21/2024 2:52 PM CDT) Pathologist [facility] Sodium 135 135 - 145 mmol/L Potassium, pl 4.2 3.3 - 4.9 mmol/L [facility] ([facility]) Chloride 103 97 - 110 mmol/L [facility] ([facility]) CO2 22 22 - 32 mmol/L [facility] ([facility]) Anion gap 10 2 - 15 mmol/L [facility] ([facility]) BUN 7 6 - 25 mg/dL [facility] ([facility]) Creatinine 0.85 0.80 - 1.30 mg/dL [facility] ([facility]) Glucose 114 70 - 199 mg/dL [facility] ([facility]) Comment: Interpretive Data Fasting glucose [...] classification and Diagnosis of Diabetes Diabetes Care 2021; 46: S19-S40. Current interpretive data was last [...] MD LAB BLOOD ORDERABLES Final R esult [facility] 1 [facility] Department [place] [address] * ECG 12 lead (09/21/2024 2:47 PM CDT) 09/21/2024 2:47 PM CDT Narrative [facility] - 09/21/2024 3:25 PM CDT Vent Rate: 86 bpm RR Interval: 691 msec WV Interval: 143 msec QRS Duration: 95 msec QT Interval: 352 msec QTC Interval: 396 msec P-R-T [place]: 85 - 39 - 31 degrees IMPRESSION: SINUS RHYTHM POSSIBLE RIGHT VENTRICULAR CONDUCTION DELAY [RSR (QR) IN V1/V2] BORDERLINE ECG NO CHANGE FROM PREVIOUS TRACING NOTED Electronically Signed By: Presley Nielson MD Song Noel MD ECG ORDERABLES Final Result [facility] from Last 3 Months Insurance [facility] [employer] MEDICARE HMO Advance Directives For more information, please contact: [phone] * Full Code (Latest Code Status on File) Date Activated Date Inactivated Comments 05/29/2021 2:32 PM 06/02/2021 7:31 PM * Full Code Date Activated Date Inactivated Comments 05/29/2021 6:33 AM 05/29/2021 2:32 PM * Full Code Date Activated Date Inactivated Comments 05/28/2021 8:10 PM 05/29/2021 6:33 AM Care Teams Plate Former Relationship Specialty Start Date End Date Yoav Goldsmith DO PCP - General 09/08/19 Renee Cook MD Consulting Physician Gastroenterology 06/02/21
[2024-11-08 11:37] VITALS: BP 141/79; PULSE 85; RESP 16; TEMP 37; O2SAT 100
[2024-11-08 11:55] LABS: Glucose Point of Care 68 mg/dl (65-105)
[2024-11-08] MEDS: LACTATED RINGERS 1,000 ML 150 ML IV CONT (11:56)
[2024-11-08] MEDS: DEXTROSE 50% 25 GM/50 ML SYRINGE IV PUSH (12:06)
--- NOTE | 2024-11-08 12:10 | SUR.PREOP ---
The pre op blood glucose checked was 68. Pt. denies any symptoms at this time, 12.5 mg Dextrose 50% IV push given and will recheck blood sugar after procedure per Dr. Espinoza verbal order. Will continue to monitor.
--- NOTE | 2024-11-08 12:16 | SUR.PREOP ---
Pt. aware there is over an hour delay today, pt. verbalized understanding and is fine with that. Will continue to monitor.
--- NOTE | 2024-11-08 12:17 | WPDANESEPPF ---
Anes - Initial Pre Proc Eval Procedure: Operation Date: 11/08/24 11:30 Proposed Procedures p Esophagogastroduodenoscopy - Seb Dye MD Date/Time: 11/08/24 12:17 Surgeon: Seb Dye MD Pre Op Diagnosis: Heartburn,Dysphagia, unspecified Patient Data Age: 58 Gender: M Height: 1.83 m Weight: 87.2 kg Last Vital Signs Temp 37.0 C 11/08/24 11:37 Pulse 85 11/08/24 11:37 Resp 16 11/08/24 11:37 BP 141/79 H 11/08/24 11:37 Pulse Ox 100 11/08/24 11:37 O2 Del Method Room Air 11/08/24 11:37 Allergies Allergy/AdvReac Type Severity Reaction Status Date / Time No Known Allergies Allergy Verified 11/08/24 11:25 Home Medications Medication Instructions Recorded Confirmed Type secukinumab 150 mg/mL subcutaneous 150 mg subcut ONCE 03/17/23 11/08/24 History syringe (Cosentyx 300 mg/2 Syringes () fluticasone propionate 50 2 spray intranasal DAILY PRN 06/24/23 11/06/24 History mcg/actuation nasal allergies spray,suspension (Flonase Allergy Relief) losartan 100 mg tablet 100 mg PO DAILY #90 tabs 03/02/24 11/08/24 Rx atorvastatin 80 mg tablet See Rx Instructions .Route 08/23/24 11/08/24 Rx .COMPLEX #90 tabs zolpidem 5 mg tablet 5 mg PO QHS PRN insomnia #30 tabs 09/27/24 11/06/24 Rx gabapentin 300 mg capsule 300 mg PO TID #270 caps 10/13/24 11/08/24 Rx omeprazole 20 mg capsule,delayed 20 mg PO DAILY #90 caps 10/13/24 11/08/24 Rx release Laboratory Tests 11/08/24 11:47 POC Capillary Glucose 68 mg/dl (65-105) Patient hx anesthesia problems: none Family hx anesthesia problems: none Results Review: All pre-operative results and documents have been reviewed as part of the pre-operative evaluation. 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 Amputation of leg Amputation toe Psoriasis Tachycardia Hyperlipidemia Type 2 diabetes mellitus Polyneuropathy Hypertension Insomnia Surgical History Surgical History Hx laparoscopic cholecystectomy H/O foot surgery Right: 08/2018 Family History Family History Mother Diabetes mellitus Father Family history of lung cancer Social History Social History Social History: caffeine- Diet soda Smoking packs per day: 2 Smoking cigarettes per day: 40.0 Years smoked: 15 Smoking pack-years: 30.00 Smoking status: Former smoker Smoking end date: 06/21/06 Alcohol intake: current Drinks per week: 14 Living arrangements: alone Anes - Eval Final PreProcedure Day of Procedure 11/08/24 12:17 Patient weight: overweight Heart: regular rate and rhythm Lungs: decreased breath sounds Airway: Mallampati scale class II Neurological: alert and oriented Last oral intake: >/= 8 hours ASA classification: III Emergent: no Anesthetic plan: proceed Anesthesia type and monitoring: general GIVS and standard monitoring Results Review: All pre-operative results and documents have been reviewed as part of the pre-operative evaluation. Informed Consent: The patient's anesthetic plan and its attendant risks and benefits were discussed with the patient/family/POA. Questions were solicited and answers provided to the satisfaction of the patient/family/POA.
--- NOTE | 2024-11-08 12:37 | PM.IMHP ---
H&P: HPI History of Present Illness Date/Time: 11/08/24 12:37 Chief Complaint: Dysphagia Narrative: the patient has several months, approximately 2-3, with progressive dysphagia mainly to solids. He has been losing weight steadily over the past year. Of note, he is a heavy drinker drinking approximately 6 beers per day and is a former smoker, quit several years ago. He used to smoke 2 packs a day. He is now referred for EGD. 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 Amputation of leg Amputation toe Psoriasis Tachycardia Hyperlipidemia Type 2 diabetes mellitus Polyneuropathy Hypertension Insomnia Surgical History Surgical History Hx laparoscopic cholecystectomy H/O foot surgery Right: 08/2018 Family History Family History Mother Diabetes mellitus Father Family history of lung cancer Social History Social History Social History: caffeine- Diet soda Smoking packs per day: 2 Smoking cigarettes per day: 40.0 Years smoked: 15 Smoking pack-years: 30.00 Smoking status: Former smoker Smoking end date: 06/21/06 Alcohol intake: current Drinks per week: 14 Living arrangements: alone Meds Home Medications and Allergies Home Medications Medication Instructions Recorded Confirmed Type secukinumab 150 mg/mL subcutaneous 150 mg subcut ONCE 03/17/23 11/08/24 History syringe (Cosentyx 300 mg/2 Syringes () fluticasone propionate 50 2 spray intranasal DAILY PRN 06/24/23 11/06/24 History mcg/actuation nasal allergies spray,suspension (Flonase Allergy Relief) losartan 100 mg tablet 100 mg PO DAILY #90 tabs 03/02/24 11/08/24 Rx atorvastatin 80 mg tablet See Rx Instructions .Route 08/23/24 11/08/24 Rx .COMPLEX #90 tabs zolpidem 5 mg tablet 5 mg PO QHS PRN insomnia #30 tabs 09/27/24 11/06/24 Rx gabapentin 300 mg capsule 300 mg PO TID #270 caps 10/13/24 11/08/24 Rx omeprazole 20 mg capsule,delayed 20 mg PO DAILY #90 caps 10/13/24 11/08/24 Rx release Allergies Allergy/AdvReac Type Severity Reaction Status Date / Time No Known Allergies Allergy Verified 11/08/24 11:25 Vital Signs Vital Signs - 24 hr 11/08/24 11:37 Temperature 98.6 F Pulse Rate 85 Respiratory Rate 16 Blood Pressure 141/79 H Pulse Oximetry 100 Oxygen Delivery Room Air Exam Const: General: cooperative and healthy appearing Resp: Effort & Inspection: normal respiratory effort and able to speak in complete sentences Auscultation: clear to auscultation bilaterally Cardio: Rate: regular rate Rhythm: regular rhythm GI: Inspection: normal to inspection GI Palp: No No hepatosplenomegaly present Auscultation: normal bowel sounds Rectal Exam: deferred Skin: General skin exam: normal color Psych: Appearance: grossly normal Mental Status: mental status grossly normal Assessment and Plan Assessment and plan (1) Dysphagia: Code(s): R13.10 - Dysphagia, unspecified Status: Acute
[2024-11-08 12:52] VITALS: BP 112/76; PULSE 89; RESP 20; O2SAT 100
[2024-11-08 13:02] VITALS: BP 112/68; PULSE 81; RESP 20; O2SAT 100
[2024-11-08 13:11] LABS: Glucose Point of Care 100 mg/dl (65-105)
[2024-11-08 13:12] VITALS: BP 112/68; PULSE 81; RESP 20; O2SAT 100
== END 2024-11-08 13:29 | disposition home or self-care (01) ==
PROVIDERS: PCP Clinical Nurse Specialist; Referring Provider Nurse Practitioner Family; Visit Provider Internal Medicine Gastroenterology
PROC: 0DJ08ZZ Inspection of Upper Intestinal Tract, Via Natural or Artificial Opening Endoscopic (ICD-10-PCS; CPT 43239; principal; 2024-11-08 11:30)
DX: K29.40 Chronic atrophic gastritis without bleeding (principal); R13.10 Dysphagia, unspecified; E11.9 Type 2 diabetes mellitus without complications; Z87.891 Personal history of nicotine dependence; F10.90 Alcohol use, unspecified, uncomplicated
CPT/HCPCS: 43239; 82948; 88305; 88342; J2003; J2704; J7120

== ENCOUNTER 2025-02-26 08:17 | Outpatient (CLI) | payer MEDICARE, SELFPAY ==
--- NOTE | ~2025-02-26 | NM_ITS ---
EXAMINATION: NM kristopher stress w perfusion DATE: 02/26/2025 12:13 INDICATION: Shortness of breath TECHNIQUE: Rest images were obtained following intravenous administration of 10.6 mCi Tc99m tetrofosmin (Myoview). The patient was infused intravenously with Lexiscan (Regadenoson). Then, 31 mCi Tc99m tetrofosmin (Myoview) was administered intravenously, and stress images were obtained. Data was recons tructed into short axis and horizontal and vertical long axis SPECT images. Gated SPECT images were also obtained. COMPARISON: None. FINDINGS: Small region of mild decreased activity at the apical septal segment on the post stress imaging which appears of less severe as extensive than on the rest imaging and favor artifact over infarct. No reversible ischemia. There is normal left ventricular chamber size, wall motion and ejection fraction. Left ventricular ejection fraction measures >70%. IMPRESSION: 1. Small focus of mild decreased activity at the apical septal segment on the post stress imaging with more extensive and greater degree of decreased activity along the septum on the rest images which would favor artifact over small mild infarct. No reversible ischemia. 2. Left ventricular ejection fraction measuring >70%. Reviewed, dictated and finalized at location A. IMPRESSION: 1. Small focus of mild decreased activity at the apical septal segment on the p ost stress imaging with more extensive and greater degree of decreased activity along the septum on the rest images which would favor artifact over small mild infarct. No reversible ischemia. 2. Left ventricular ejection fraction measuring >70%.
--- NOTE | 2025-02-26 08:22 | ECHO_ITS ---
Patient Info Name: Lenard Castaneda Age: 59 years : 1965 Gender: Male Ht: 72 in Wt: 190 lbs BSA: 2.10 m2 HR: 70 bpm BP: 140 / 89 mmHg Heart Rhythm: Sinus Rhythm Technical Quality: Fair Exam Date: 02/26/2025 8:42 AM Patient Status: O Admit Date: 02/26/2025 Exam Type: CA echo doppler color flow Complete two-dimensional, color flow and Doppler transthoracic echocardiogram is performed. Strain analysis performed. Staff Referring Physician: Maeve COPELAND Production Intern: Maritza Street Attending Provider: Maeve COPELAND Summary 1. Complete two-dimensional, color flow and Doppler transthoracic echocardiogram is performed. 2. Left ventricular chamber dimension is normal. 3. Left ventricular systolic function is normal, estimated at 60-65. 4. The left ventricular diastolic function is normal. 5. Global longitudinal strain is normal at -18.6%. 6. E/e' 8 is minimally elevated. 7. Left atrial chamber dimension is mildly enlarged. 8. There is mild mitral valve regurgitation. 9. There is trace tricuspid valve regurgitation. 10. No pulmonary hypertension, estimated pulmonary arterial systolic pressure is 23 mmHg. Left Ventricle E/e' 8 is minimally elevated. Left ventricular chamber dimension is normal. Left ventricular systolic function is normal, estimated at 60-65. The left ventricular diastolic function is normal. Global longitudinal strain is normal at -18.6%. Right Ventricle Right ventricular chamber dimension is normal. Right ventricular systolic function is normal and with normal TAPSE 2.1 cm. Left Atria Left atrial chamber dimension is mildly enlarged. Right Atria Right atrial chamber dimension is normal. Aortic Valve The aortic valve is trileaflet. There is no aortic valve stenosis. There is no aortic valve regurgitation. Pulmonic Valve There is no pulmonic regurgitation. Mitral Valve There is no mitral valve stenosis. There is mild mitral valve regurgitation. Tricuspid Valve There is trace tricuspid valve regurgitation. No pulmonary hypertension, estimated pulmonary arterial systolic pressure is 23 mmHg. Pericardium/Pleural There is no pericardial effusion. Inferior Vena Cava Normal inferior vena cava with >50% collapse upon inspiration consistent with normal right atrial pressure, 5 mmHg. Aorta The aortic root size at the sinus of Valsalva is normal. Left Ventricular Outflow Tract Name Value Normal LVOT 2D LVOT Diameter 2.0 cm LVOT Doppler LVOT Peak Velocity 108 cm/s LVOT Peak Gradient 5 mmHg LVOT Mean Gradient 2 mmHg LVOT VTI 22 cm LVOT VTI/AV VTI Ratio 0.8 LVOT Stroke Volume 71 ml LVOT CO 4.2 l/min LVOT CI 2.0 l/min/m2 Pulmonic Valve Name Value Normal RVOT Doppler RVOT Peak Velocity 94 cm/s RVOT Peak Gradient 4 mmHg PV Doppler PV Peak Velocity 100 cm/s PV Peak Gradient 4 mmHg Mitral Valve Name Value Normal MV Diastolic Function MV E Peak Velocity 88 cm/s MV A Peak Velocity 55 cm/s MV E/A 1.6 MV Decel Time (PW) 234 ms MV Annular TDI MV E/e' (Septal) 10.1 MV E/e' (Lateral) 7.6 MV E/e' (Average) 8.8 Tricuspid Valve Name Value Normal TV Regurgitation Doppler TR Peak Velocity 211 cm/s TR Peak Gradient 18 mmHg Estimated PAP/RSVP RA Pressure 5 mmHg <=5 PA Systolic Pressure 23 mmHg <36 RV Systolic Pressure 23 mmHg <36 TV Annular TDI TV Lateral Rosalia s' Velocity 10.4 cm/s >=9.5 Aorta Name Value Normal Ascending Aorta Ao Root Diameter (MM) 3.2 cm Ao Root Diam Index (MM) 1.5 cm/m2 Aortic Valve Name Value Normal AV Doppler AV Peak Velocity 127 cm/s AV Peak Gradient 6 mmHg AV Mean Gradient 3 mmHg AV VTI 26 cm AV Area (Cont Eq VTI) 2.7 cm2 >=3.0 AV Area (Cont Eq Stoney) 2.8 cm2 AV DI (Stoney) 0.85 AV Regurgitation 2D LVOT Area 3.3 cm2 Ventricles Name Value Normal LV Dimensions 2D/MM IVS Diastolic Thickness (2D) 1.0 cm 0.6-1.0 LVID Diastole (2D) 5.3 cm 4.2-5.8 LVIW Diastolic Thickness (2D) 1.0 cm 0.6-1.0 LVID Systole (2D) 3.6 cm 2.5-4.0 LVOT Diameter 2.0 cm LV Mass (2D Cubed) 192.59 g 88.00-224.00 LV Mass Index (2D Cubed) 92 g/m2 49-115 Relative Wall Thickness (2D) 0.36 <=0.42 LV Fractional Shortening/Ejection Fraction 2D/MM LV Fractional Shortening (2D) 32 % 25-43 LV EF (2D Teichholz) 60 % LV Diastolic Volume (4C MOD) 88 ml LV EF (4C MOD) 56 % LV Diastolic Volume (2C MOD) 100 ml LV EF (2C MOD) 60 % LV Diastolic Volume (BP MOD) 96 ml 62-150 LV Diastolic Volume Index (BP MOD) 46 ml/m2 34-74 LV Systolic Volume (BP MOD) 39 ml 21-61 LV Systolic Volume Index (BP MOD) 19 ml/m2 11-31 LV EF (BP MOD) 59 % 52-72 LV Diastolic Length (4C) 7.8 cm LV Systolic Length (4C) 6.5 cm LV Stroke Volume (4C MOD) 49 ml Atria Name Value Normal LA Dimensions LA Dimension (MM) 5.0 cm 3.0-4.0 LA Volume (4C A-L) 78 ml LA Volume (BP A-L) 80 ml RA Dimensions RA Area (4C) 14.9 cm2 <=18.0 EchoPAC Name Value Normal DESI LV Apical Anterior Longitudinal Strain (DESI) -21.3 % LV Apical Anteroseptal Longitudinal Strain (DESI) -24.8 % LV Apical Inferior Longitudinal Strain (DESI) -27.5 % LV Apical Lateral Longitudinal Strain (DESI) -14.5 % LV Apical Posterior Longitudinal Strain (DESI) -22.1 % LV Apical Septal Longitudinal Strain (DESI) -22.3 % AV Closure (DESI) 352 ms LV Basal Anterior Longitudinal Strain (DSEI) -16.5 % LV Basal Anteroseptal Longitudinal Strain (DESI) -12.4 % LV Basal Inferior Longitudinal Strain (DESI) -19.9 % LV Basal Anterolateral Longitudinal Strain (DESI) -12.9 % LV Basal Inferolateral Longitudinal Strain (DESI) -17.3 % LV Basal Inferoseptal Longitudinal Strain (DESI) -17.2 % LV Global Longitudinal Strain (2C DESI) -20.3 % LV Global Longitudinal Strain (4C DESI) -16.8 % LV Global Longitudinal Strain (APLAX DESI) -18.8 % LV Global Longitudinal Strain (DESI) -18.6 % LV Mid Anterior Longitudinal Strain (DESI) -15.7 % LV Mid Anteroseptal Longitudinal Strain (DESI) -18.7 % LV Mid Inferior Longitudinal Strain (DESI) -23.1 % LV Mid Anterolateral Longitudinal Strain (DESI) -11.7 % LV Mid Inferolateral Longitudinal Strain (DESI) -17.5 % LV Mid Inferoseptal Longitudinal Strain (DESI) -22.9 % Report Signatures
--- NOTE | 2025-02-26 08:22 | EST_ITS ---
Patient Info Name: Lenard Castaneda Age: 59 years : 1965 Gender: Male Ht: 72 in Wt: 190 lbs BSA: 2.10 m2 HR: 57 bpm BP: 139 / 76 mmHg Exam Date: 02/26/2025 8:22 AM Patient Status: O Admit Date: 02/26/2025 Exam Type: CA stress kristopher w NM A regadenoson stress test was performed. Staff Referring Physician: Maeve COPELAND Attending Provider: Maeve COPELAND Exercise Technologist: Alice Ferraro Exercise Physician: Jack Cárdneas DO Summary 1. 1. Negative lexsican stress test for ischemic ST changes. 2. 2. Stable hemodynamics throughout the test. 3. 3. Nuclear scan to follow and will be reported separately. Please correlate with it. 4. 4. Patient informed of the above results. Protocol: Lexiscan Stress ECG Details Stage: REST Duration (min): 0 min : 58 sec HR (bpm): 57 SBP (mmHg): 139 DBP (mmHg): 76 Stage: REST Duration (min): 4 min : 32 sec HR (bpm): 65 SBP (mmHg): 139 DBP (mmHg): 76 Stage: STAGE 1 Duration (min): 0 min : 59 sec HR (bpm): 80 SBP (mmHg): 145 DBP (mmHg): 78 Stage: RECOVERY Duration (min): 1 min : 0 sec HR (bpm): 94 SBP (mmHg): 145 DBP (mmHg): 78 Stage: RECOVERY Duration (min): 2 min : 0 sec HR (bpm): 82 SBP (mmHg): 145 DBP (mmHg): 78 Stage: RECOVERY Duration (min): 3 min : 0 sec HR (bpm): 83 SBP (mmHg): 147 DBP (mmHg): 77 Stage: RECOVERY Duration (min): 3 min : 0 sec HR (bpm): 83 SBP (mmHg): 147 DBP (mmHg): 77 Rest HR: 65 bpm Peak HR: 94 bpm Rest Sys BP: 139 mmHg Peak Sys BP: 147 mmHg Max Pred HR: 162 bpm % Max Pred HR: 58 % Target HR: 138 bpm Max RPP: 13,818 bpm*mmHg Termination Reason: Completed protocol Cardiac Symptoms: Shortness of breath Total Time: 1 min : 0 sec Rest Gates BP: 76 mmHg Peak Gates BP: 77 mmHg Total Dose: 0.4 mg Resting ECG Sinus rhythm. Stress ECG No ST changes. Arrhythmias None. Report Signatures
--- OUTSIDE RECORDS SUMMARY | 2025-02-26 08:32 | XMS_ITS | Patient Health Record ---
Author Organization [facility] Billing Info Address [address] [place] [address] Care Team Providers Care User Interface Designer Name Role Phone BISHNU MANZO Primary Care [...] Lyrica 200 MG TAKE 1 CAPSULE BY [facility] 3 TIMES DAILY Orally Q8H for [...] Problem Status W/U Status Risk Notes Problem 237829830 Type 2 diabetes mellitus with diabetic polyneuropathy (E11.42) Active confirmed Problem 165739566 Dyslipidemia (E78.5) Active confirmed Problem 86233930 Charcot foot due to diabetes mellitus (E11.610) Active confirmed Problem 6894965 Essential hypertension, benign (I10) Active confirmed Problem 0752327 Personal history of noncompliance with medical treatment, presenting hazards to health (Z91.19) Active confirmed Problem 64889508 Mononeuritis of unspecified site (G58.9) Active confirmed Problem 20830784 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
--- OUTSIDE RECORDS SUMMARY | 2025-02-26 08:32 | XMS_ITS | Clinical Summary ---
Author Organization [facility] Address [address] [place] [address] Care Team Providers Care Coater Operator Name Role Phone Yoav Goldsmith DO Primary Care Provider [phone] Renee Cook MD Unavailable [phone] Allergies No known active allergies Medications clobetasoL [...] (05/28/2021): Added automatically from request for surgery [id number] Calculus of gallbladder with acute cholecystitis and obstruction 05/28/2021 07/07/2021 Acute cholecystitis 07/07/19 22 Jaundice 07/07/2021 Surgical History Surgery Date Site/Laterality Comments BELOW KNEE LEG AMPUTATION Right Medical History Medical History Date Comments Type 2 diabetes mellitus Hypertension Peripheral vascular disease Social History Tobacco [...] 2016 Depression Screening 05/28/2022 05/28/2021 Influenza Vaccine (#1) 2025 eGFR 09/21/2025 09/21/2024, 05/21, 06/01/2021, Additional history exists Procedures Procedure Name Priority Date/Time Associated Diagnosis Comments EGFR STAT 09/21/2024 2:52 PM CDT from Last 3 Months or Most Recently Relevant to Health Maintenance Results * eGFR (09/21/2024 2:52 PM CDT) eGFR [...] MD LAB BLOOD ORDERABLES Final R esult [facility] Department of Laboratories [place], [place] [id number] from Last 3 Months or Most Recently Relevant to Health Maintenance Insurance [facility] [employer] MEDICARE HMO Advance Directives For more information, please contact: [phone] * Full Code (Latest Code Status on File) Date Activated Date Inactivated Comments 05/29/2021 2:32 PM 06/02/2021 7:31 PM * Full Code Date Activated Date Inactivated Comments 05/29/2021 6:33 AM 05/29/2021 2:32 PM * Full Code Date Activated Date Inactivated Comments 05/28/2021 8:10 PM 05/29/2021 6:33 AM Care Teams Coater Operator Relationship Specialty Start Date End Date Yoav Goldsmith DO PCP - General 09/08/19 Renee Cook MD Consulting Physician Gastroenterology 06/02/21
--- OUTSIDE RECORDS SUMMARY | 2025-02-26 08:32 | XMS_ITS | Clinical Summary ---
Author Organization [facility] Address [address] [facility] [place] [address] Phone Care Team Providers Care Skilled Laborer Name Role Phone LeylabobYoav isaacs Johann Primary [...] Active Bismuth Tribromoph-Saad olatum (XEROFORM PETROLAT GAUZE 1X8) Misc 1 Units by Apply externally route daily. 30 Each 3 9 Active Gauze Pads & Dressings (ABDOMINAL PAD) 8X10 Pads 1 Units by Does not apply route daily. 30 Each 3 9 Active Additional Information Patient not taking.Reported on 08/02/2019 Gauze Pads & Dressings (GAUZE DRESSING) 4X4 Pads 1 Units by Does not apply [...] right foot 017 Type 2 diabetes mellitus, wi thout long-term current use of insulin (<HCC>) 04/27/2017 [...] on file Legal Sex Male 1:24 PM SCREEN TACKER Gender Identity Not on file Sexual Orientation Not on file Last Filed Vital Signs Vital Sign Reading Time Taken Comments Blood Pressure 123/76 05/27/2021 10:30 PM SCREEN TACKER Pulse 102 05/27/2021 10:30 PM SCREEN TACKER Temperature 36.8 C (98.2 F) 05/27/2021 6:19 PM SCREEN TACKER Respiratory Rate 22 05/27/2021 10:30 PM SCREEN TACKER Oxygen Saturation 99% 05/27/2021 10:30 PM SCREEN TACKER Inhaled Oxygen Concentration - - Weight 104.3 kg (230 lb) 05/27/2021 6:16 PM SCREEN TACKER Height 182.9 cm (6') 05/27/2021 6:16 PM SCREEN TACKER Body Mass Index 31.19 05/27/2021 6:16 PM SCREEN TACKER Plan of Treatment Health Maintenance Due Date Last Done Comments Diabetes: Eye Exam 1966 Hepatitis C Virus (HCV) Screening 1966 Hepatitis B Immunization (1 of 3 - 19+ 3-dose series) 1985 Pneumococcal Immunization (50+ years) (1 of 2 - PCV) 1985 Zoster Immunization (1 of 2) 1985 Cologuard 12/01/2011 Colonoscopy 12/01/2011 Colorectal Cancer Screening 12/01/2011 Immunochemical Fecal Occult Blood 12/01/2011 Diabetes: Hemoglobin A1c 10/25/2017 04/27/2017 Diabetes: Foot Exam 04/27/2018 04/27/2017 SARS-COV-2 Immunization (3 - Moderna risk series) 03/18/2021 02/18/2021, 01/07/2021 Diabetes: Nephropathy Screening 05/27/2022 05/27/2021, 06/09/2017, 06/01/2017, Additional history exists Influenza Immunization (#1) 2025 Respiratory Syncytial Virus (RSV) Immunization (Adult) (1 - 1-dose 75+ series) 2041 DTaP/Tdap/Td Immunization Discontinued 09/09/2019 TdaP Immunization Completed 09/09/2019 Human Papillomavirus (HPV) Immunization Aged Out No longer eligible based on patient's age to complete this topic Meningococcal Immunization (ACWY) Aged Out No longer eligible based on patient's age to complete this topic Rotavirus Immunization Aged Out No lo nger eligible based on patient's age to complete this topic Procedures Procedure Name Priority Date/Time Associated Diagnosis Comments CMP (COMPREHENSIVE METABOLIC PANEL) STAT 05/27/2021 6:10 PM SCREEN TACKER HEMOGLOBIN A1C W/ ESTIMATED GLUCOSE STAT 04/27/2017 9:39 AM SCREEN TACKER from Last 3 Months or Most Recently Relevant to Health Maintenance Results * (ABNORMAL) CMP (Comprehensive Metabolic Panel) (05/27/2021 6:10 PM SCREEN TACKER) SODIUM 134(L) 136 - 144 mmol/L 05/27/2021 7:10 PM SCREEN TACKER [facility] POTASSIUM 3.1(L) 3.5 - 5.1 mmol/L 05/27/2021 7:10 PM SCREEN TACKER [facility] CHLORIDE 96(L) 100 - 110 mmol/L 05/27/2021 7:10 PM [facility] CO2, VENOUS 21(L) 22 - 32 mmol/L 05/27/2021 7:10 PM SCREEN TACKER [facility] ANION GAP 20.1(H) 8.0 - 20.0 mmol/L 05/27/2021 7:10 PM [facility] GLUCOSE 248(H) 70 - 99 mg/dL 05/27/2021 7:10 PM SCREEN TACKER [facility] BUN 10 6 - 20 mg/dL 05/27/2021 7:10 PM [facility] CREATININE, BLOOD 0.72(L) 0.80 - 1.30 mg/dL 05/27/2021 7:10 PM [facility] BUN/CREATININE RATIO 14 12 - 20 ratio 05/27/2021 7:10 PM [facility] TOTAL PROTEIN 7.6 6.0 - 8.3 g/dL 05/27/2021 7:10 PM [facility] ALBUMIN 4.2 3.5 - 5.2 g/dL 05/27/2021 7:10 PM [facility] Comment: The colormetric methods used for the determination of Albumin may lead to falsely elevated test results in patients suffering from renal failure or insufficiency due to interference with other proteins. A/G RATIO 1.2 1.0 - 2.0 05/27/2021 7:10 PM SCREEN TACKER [facility] CALCIUM 9.6 8.9 - 10.3 mg/dL 05/27/2021 7:10 PM SCREEN TACKER [facility] T BILI 2.8(H) <=1.2 mg/dL 05/27/2021 7:10 PM SCREEN TACKER [facility] SGOT (AST) 129(H) <=40 U/L 05/27/2021 7:10 PM SCREEN TACKER [facility] SGPT (ALT) 116(H) <=41 U/L 05/27/2021 7:10 PM SCREEN TACKER [facility] ALKALINE PHOSPHATASE 222(H) 40 - 130 U/L 05/27/2021 7:10 PM [facility] GFR, EST. NONAFRICAN >60 >=60 05/27/2021 7:10 PM [facility] GFR, EST. >60 >=60 021 7:10 PM [facility] Comment: Creatinine Clearance is the preferred criteria for selecting drug dose adjustments in renally impaired patients. The GFR is provided as additional pertinent clinical information. GFR is reported in mL/min/1.73 sq m. Blood Venipuncture / Unknown 05/27/2021 6:10 PM SCREEN TACKER 05/27/2021 6:40 PM SCREEN TACKER Alexander Ocasio MD CHEMISTRY ORDERABLES Alejandra meléndez Result [facility] [address] [place] [address] * Hemoglobin A1C w/ Estimated Glucose (04/27/2017 9:39 AM SCREEN TACKER) HGB-A1C 6.2 4.4 - 6.4 % 04/27/2017 10:26 AM SCREEN TACKER [facility] Est Average Glucose 131.2 mg/dL 04/27/2017 10:26 AM SCREEN TACKER [facility] Blood specimen (specimen) Venous Catheter (IV) / Unknown 04/27/2017 9:39 AM SCREEN TACKER 04/27/2017 9:48 AM SCREEN TACKER Narrative [facility] - 04/27/2017 10:26 AM SCREEN TACKER HEMOGLOBIN A1C: DIABETIC PATIENTS: WELL-CONTROLLED: 6.2 - 7.0 INTERMEDIATE WELL-CONTROLLED: 7.0 - 9.0 POORLY-CONTROLLED: >9.0 us Noel Gonzalez MD CHEMISTRY ORDERABLES Final Result [facility] [address] [place] [address] from Last 3 Months or Most Recently [...] measures to stabilize the patient. Care Teams Skilled Laborer Relationship Specialty Start Date End Date Yoav Goldsmith DO [facility] [place], [place] [id number] PCP - General Internal Medicine 04/27/17
--- OUTSIDE RECORDS SUMMARY | 2025-02-26 08:32 | XMS_ITS | Clinical Summary ---
Author Organization [facility] Address [address] [facility] [place] [address] Care Team Providers Care Wheat Washer Name Role Phone Yoav Goldsmith DO Primary Care Provider [phone] Source Comments [facility],non-owned Affiliates and Associated Physician Practices is amultiple site organization consisting of ambulatory clinics and hospital sitesin [place], [place], [place] and [place]. This disclosure is being madepursuant to the Care Everywhere program and may not contain all information available regarding this patient. Last updated 18.[facility] Allergies No known active allergies Medications * [...] 2016 ZOSTER VACCINE (1 of 2) 2016 DEPRESSION SCREENING 06/21/2024 COVID-19 VACCINE (2023-2 5 season) 2025 INFLUENZA VACCINE (#1) 2025 HEPATITIS C SCREENING Completed 03/10/2018 , [...] Comment: REPORT COMMENT: FASTING:YES Test Performed at: [facility] [facility] [address] [place] [address] MACIEL BLEDSOE DO,MPH 03/10/2018 7:24 AM CDT 03/10/2018 7:25 AM CDT Hina Hilton MD LAB - CHEMISTRY ORDERABLES nal Result [facility] [address] [place] [address] from Last 3 Months or Most Recently Relevant to Health Maintenance Insurance [facility] MEDICARE [employer] [facility] Care Address: [address] [address] [place] [address] SELF PAY NO INSURANCE Member Subscriber Plan / Payer (Ef fective for All Dates) Name:Grisel Lenard L Member ID:Not on file Relation to Subscriber:Not on file Name:GRISELLENARD L Subscriber ID:Not on file (Home) Address: [address] [place] [address] Payer ID:Not on file Group ID:Not on file Type:Self Pay Address: [place], [place] Care Teams Wheat Washer Relationship Specialty Start Date End Date Yoav Goldsmith DO PCP - General 12/31/17
== END 2025-02-26 08:18 | disposition home or self-care (01) ==
PROVIDERS: PCP Clinical Nurse Specialist; Visit Provider Clinical Nurse Specialist
DX: R06.02 Shortness of breath (principal); R07.9 Chest pain, unspecified
CPT/HCPCS: 78452; 93017; 93306; A9502; J2785